=== PATIENT | male | born 1935 | race Caucasian/White ===

== ENCOUNTER → 2019-10-25 07:48 | Outpatient (REF) | payer MEDICARE, OTHER, SELFPAY | LOC: ANHLAB 07:48 | PROVIDERS: PCP Internal Medicine; Visit Provider Nurse Practitioner Family | DX: C44.42 Squamous cell carcinoma of skin of scalp and neck (principal) | CPT/HCPCS: 88305; 88331 ==

== ENCOUNTER 2023-12-28 15:35 | Inpatient (IN) | payer MEDICARE, SELFPAY ==
[2023-12-28] VITALS (43 sets, daily range): BP systolic 83–145; BP diastolic 42–99; PULSE 0–102; RESP 14–28; TEMP 37.2; O2SAT 92–99
--- NOTE | ~2023-12-28 | CT_ITS ---
EXAMINATION: CT brain wo con DATE: 12/28/2023 21:09 INDICATION: Altered mental status with weakness and confusion TECHNIQUE: Computed tomography (CT) of the head was performed without intravenous contrast. Sagittal and coronal reconstructions were performed. The mA was adjusted according to patient size. Iterative reconstruction technique was employed. The dose-length product was 1362.00 mGy-cm. COMPARISON: None FINDINGS: No acute intracranial hemorrhage, acute infarction or abnormal extra axial fluid collection. There is mild scattered white matter hypoattenuation consistent with chronic small vessel ischemic disease. S ymmetric prominence of the sulci and ventricles consistent with moderate to severeage-appropriate dif fuse cerebral volume loss. No mass/mass effect. Changes of bilateral intraocular lens replacement. Th e orbits and mastoid air cells are normal. Moderate mucosal thickening throughout the paranasal sinus es with dependently layering mucus in the bilateral maxillary and right sphenoid sinuses. Intracrania l calcified cerebral atherosclerosis is noted. IMPRESSION: 1. No acute intracranial process. 2. Age related changes including moderate to severe diffuse volume loss and mild scattered white angelia er hypoattenuation consistent with chronic small vessel ischemic disease. 3. Sinus disease with layering fluid in the paranasal sinuses. Correlate clinically for acute sinusit is. Reviewed, dictated and finalized at location A. IMPRESSION: 1. No acute intracranial process. 2. Age related changes including moderate to severe diffuse volume loss and mil d scattered white matter hypoattenuation consistent with chronic small vessel i schemic disease. 3. Sinus disease with layering fluid in the paranasal sinuses. Correlate clinic ally for acute sinusitis.
--- NOTE | ~2023-12-28 | XR_ITS ---
XR chest 2V Ordering provider: Karen Romo MD History: 88 years Male with . weakness . Comparison: None. FINDINGS: MEDIASTINUM: The cardiac silhouette is not enlarged. LUNGS: No effusions or pneumothorax. Atelectasis versus pneumonia seen in the left lung base. Promine nt markings in the right lower lobe with possibility of early pneumonia versus atelectasis is noted. OTHER: Elevation of the left hemidiaphragm. No free air under the diaphragm. Levoscoliosis with degen erative changes of the spine. Bilateral shoulder osteoarthritic changes. IMPRESSION: Bibasilar atelectasis versus pneumonia. Clinical correlation advised. Reviewed, dictated and finalized at location A.
--- NOTE | 2023-12-28 16:03 | ECG_ITS ---
Test Date: 2023-12-28 16:14:28 Measurements Intervals [place] Rate: 76 P: 29 CA: 166 QRS: 61 QRSD: 111 T: -9 QT: 401 QTc: 452 Interpretive Statements SINUS RHYTHM PROBABLE INFERIOR MYOCARDIAL INFARCTION , PROBABLY OLD [35 ms Q WAVE IN II/aVF] PROBABLE ANTEROLATERAL MYOCARDIAL INFARCTION , OF INDETERMINATE AGE [35 ms Q WAVE IN I/aVL/V3-V6] No previous ECG available for comparison Electronically Signed On 12-29-2023 15:51:16 CDT by Sapphire Molina M.D.
[2023-12-28 16:23] LABS: Basophils Percent Auto 0.3 % (0.2-1.2); Eosinophils Absolute Auto 0.1 K/mm3 (0-0.3); Eosinophils Percent Auto 0.4 % (0-4.4); Hemoglobin 11.6 g/dL (14.0-18.0); Immature Granulocyte Absolute 0.06 K/mm3 (0.00-0.031); Immature Granulocyte Percent A 0.4 % (0-0.5); Lymphocytes Absolute Auto 1.41 K/mm3 (0.9-3.2); Lymphocytes Percent Auto 9.8 % (18.3-44.2); Mean Corpuscular HGB Conc 32.2 g/dl (32-36); Mean Platelet Volume 8.9 fl (7.4-10.4); Monocytes Absolute Auto 1.2 K/mm3 (0.1-0.6); Monocytes Percent Auto 8.5 % (2.6-8.5); Neutrophils Absolute Auto 11.6 K/mm3 (1.3-6.7); Neutrophils Percent Auto 80.6 % (45.5-73.1); Platelet Count Result 200 k/mm3 (150-375); Red Blood Count 3.87 M/mm3 (4.6-6.20); Red Cell Distribution Width 12.8 % (11.5-14.5); White Blood Count 14.4 K/mm3 (4.5-10.0)
[2023-12-28 16:35] LABS: Alanine Aminotransferase 8 U/L (6-50); Albumin Level 3.6 g/dL (3.5-5.1); Alkaline Phosphatase 77 U/L (38-126); Anion Gap 9 mmol/L (4-12); Aspartate Amino Transferase 55 U/L (17-59); Bilirubin,Total 0.9 mg/dL (0.2-1.3); Blood Urea Nitrogen 22 mg/dL (9-20); Calcium 8.8 mg/dL (8.4-10.2); Carbon Dioxide 30 mmol/L (22-30); Chloride 97 mmol/L (98-107); Estimated CRCL calculation 40 ml/min; Estimated Glomerular Filt Rate > 60; Glucose 104 mg/dL (65-110); Potassium 3.2 mmol/L (3.4-5.0); Sodium 136 mmol/L (137-145)
[2023-12-28 17:45] LABS: Add Urine Microscopic? YES; Appearance Urine Clear (Clear); Bacteria Urine None Seen /hpf; Bilirubin Urine Negative (Negative); Blood Urine Negative (Negative); Color Urine Yellow (Yellow); Glucose Urine UA Negative (Negative); Ketones Urine 1+ mg/dL (Negative); Leukocyte Esterase Ur Negative LEU/UL (Negative); Need Manual Microscopic Reviewed; Nitrate Urine Negative (Negative); Non Pathogenic Casts 0-2; Protein Urine 1+ mg/dL (Negative); RBC Urine 0-2 /hpf (0-2); Specific Grav Ur 1.023 (1.001-1.035); Squamous Epithelial Cell Urine None Seen /hpf (Few); WBC Urine 0-5 /hpf (0-3); pH Urine 5.5 (5.0-9.0)
[2023-12-28] MEDS: SODIUM CHLORIDE 0.9% IV 1,000 ML 999 ML IV CONT (20:23)
[2023-12-28] MEDS: AZITHROMYCIN 500 MG/NS 250 ML 500 MG/250 ML BAG 250 MG IVPB (20:24)
[2023-12-28] MEDS: POTASSIUM CHLORIDE INJ 40 MEQ in SODIUM CHLORIDE 0.9% IV 500 ML 130 MEQ IVPB (20:28)
[2023-12-28] MEDS: SODIUM CHLORIDE 0.9% IV 500 ML (20:28)
[2023-12-28 20:33] LABS: Creatine Kinase 758 U/L (55-170); Lactic Acid Reflex 1.8 mmol/L (0.7-2.0); Magnesium 1.9 mg/dL (1.6-2.3)
[2023-12-28 20:35] LABS: INR 1.1; Partial Thromboplastin Time 31.2 Seconds (22.3-36.8); Prothrombin Time 14.8 Seconds (11.1-14.7)
[2023-12-28 20:46] LABS: Troponin I 0.029 ng/mL (0.000-0.034)
--- NOTE | 2023-12-28 20:52 | ED.WEAKNESS ---
HPI - Weakness General Chief complaint: Weakness Stated complaint: weakness Time Seen by Provider: 12/28/23 19:01 History of Present Illness HPI Narrative: 88-year-old male with a history of Parkinson's disease. HTN, HLD presents to the emergency department via EMS from home with his daughter and at bedside for altered mental status. Patient's daughter provides the following history. States the patient has been able to ambulates slowly with a walker, however over the past week he has been able to ambulate at all. States she has seen more confused within the past week and today his condition has significantly worsened. She is concerned he may have a UTI. Patient lives at home along with his . Patient's and daughter are requesting that the patient be placed in alf given the concern they are unable to care for him at home. Per their report, the patient is normally A&O x4 and on my evaluation he is A&O x1. They state that they have noticed he has had some coughing congestion and the states that she noticed a sore to sacrum, otherwise in his normal state health. Denies complaints of chest pain or abdominal pain, vomiting or diarrhea, fever. Related Data Home Medications Medication Instructions Recorded Confirmed lisinopril 2.5 mg tablet 2.5 mg PO DAILY 10/25/19 12/28/23 simvastatin 5 mg tablet 5 mg PO DAILY 10/25/19 12/28/23 diltiazem HCl 120 mg 120 mg PO Q12H 02/24/21 12/28/23 capsule,extended release 12 hr hydrochlorothiazide 25 mg tablet mg 12/28/23 mirabegron 50 mg tablet,extended mg PO 12/28/23 release 24 hr (Myrbetriq) Allergies Allergy/AdvReac Type Severity Reaction Status Date / Time No Known Drug Allergies Allergy Unknown none Verified 01/04/23 15:12 Review of Systems Review of Systems: All systems reviewed & are unremarkable except as noted in HPI and below PMFSH Past Medical History Medical History (Updated 12/28/23 @ 22:37 by Sonya Dunham PA-C) Parkinsons Scoliosis Social History Social History Smoking status: Never smoker Alcohol intake: never Lack of Transportation: No Lack of Food: Never True Current Housing: I Have Housing Concerned About Future Housing: No Difficulty Paying Gas/Electric Bills: No Difficulty Paying for Meds: No Currently Unemployed: No Education: Bachelor's Degree Difficulty w/ Childcare or Family Care: No Living arrangements: with family Occupation/Education: retired Gender identity (if verbalized by the patient): Male Exam Narrative: GENERAL: elderly, no acute distress HEAD: Normocephalic, atraumatic. EYES: PERRLA and EOMI. ENT: Nares clear, no rhinorrhea or epistaxis. Mucous membranes moist. NECK: Supple. CHEST: Clear to auscultation. No respiratory distress. HEART: Regular rate and rhythm. No murmur heard. Normal peripheral pulses. ABDOMEN: Soft, nontender, nondistended, normal active bowel sounds. EXTREMITIES: Normal range of motion. No edema. SKIN: Stage I sacral ulcer with a small area of stage II sacral ulcer. No signs of secondary bacterial infection, no purulence or warmth. NEURO: Alert and oriented x1 . Moving all extremities spontaneously Course Vital Signs Vital signs: Vital Signs Temperature 99 F 12/28/23 15:50 Pulse Rate 85 12/28/23 15:50 Respiratory Rate 20 12/28/23 15:50 Blood Pressure 83/42 L 12/28/23 15:50 Pulse Oximetry 96 12/28/23 15:50 Oxygen Delivery Room Air 12/28/23 15:50 Temperature 99 F 12/28/23 15:50 Pulse Rate 95 12/28/23 21:49 Respiratory Rate 14 12/28/23 21:49 Blood Pressure 145/67 H 12/28/23 21:49 Pulse Oximetry 97 12/28/23 21:49 Oxygen Delivery Room Air 12/28/23 15:50 MDM - Weakness MDM Narrative Medical decision making narrative: 88-year-old male with history of Parkinson's disease presents emergency department via EMS from home with his
[2023-12-28 21:05] LABS: Thyroid Stimulating Hormone 0.467 uIU/mL (0.465-4.680)
--- NOTE | 2023-12-28 21:46 | PC.NURSE ---
This RN changed pt diaper and dressed the stage 1 pressure ulcer on pt bottom with mepalex.
[2023-12-28 21:54] LABS: Influenza A QL RT-PCR Negative (Negative); Influenza B QL RT-PCR Negative (Negative); SARS-CoV-2 RNA PCR Negative (Negative)
--- NOTE | 2023-12-28 22:34 | ECG_ITS ---
Test Date: 2023-12-28 23:28:53 Measurements Intervals [place] Rate: 81 P: 71 FL: 222 QRS: -26 QRSD: 173 T: 95 QT: 424 QTc: 495 Interpretive Statements SINUS RHYTHM WITH FIRST DEGREE AV BLOCK LEFT BUNDLE BRANCH BLOCK [120+ ms QRS DURATION, 80+ ms Q/S IN V1/V2, 85+ ms R IN I/aVL/V5/V6] Compared to ECG 12/28/2023 16:14:28 Left bundle-branch block now present Electronically Signed On 12-29-2023 15:56:57 CDT by Sapphire Molina M.D.
[2023-12-29] VITALS (20 sets, daily range): BP systolic 121–151; BP diastolic 65–95; PULSE 58–93; RESP 18–25; TEMP 36.2–37.4; O2SAT 92–100; BMI 19.1
[2023-12-29 00:05] LABS: Troponin I 0.031 ng/mL (0.000-0.034)
--- NOTE | 2023-12-29 00:13 | ADMGEN ---
This patient, Kirit Ulrich, was admitted to IMU Room 204-01 at 0010. Patient/family oriented to hospital policies and general routines including ID bracelet, bed and alarms, visiting hours, pain management, procedures, bathroom and other care routines, personal items, smoking policy, room service/diet, and visiting hours. Information on how to activate the Rapid Response Team has been discussed. Patient/Family are encouraged to report perceived risks to care and to ask questions if they do not understand what they are told or what they should do.
[2023-12-29] MEDS: CARBIDOPA/LEVODOPA 25/100 MG TABLET 1 TABLET PO ×3 (09:28→17:07)
[2023-12-29] MEDS: dilTIAZem HCL 12 HR 60 MG CAP.12HR 120 MG PO ×2 (09:29→20:09)
--- NOTE | 2023-12-29 18:31 | PM.IMHP ---
H&P: HPI History of Present Illness Date/Time: 12/29/23 18:31 Chief Complaint: Weakness Narrative: ER-HPI Narrative: 88-year-old male with a history of Parkinson's disease. HTN, HLD presents to the emergency department via EMS from home with his daughter and at bedside for altered mental status. Patient's daughter provides the following history. States the patient has been able to ambulates slowly with a walker, however over the past week he has been able to ambulate at all. States she has seen more confused within the past week and today his condition has significantly worsened. She is concerned he may have a UTI. Patient lives at home along with his . Patient's and daughter are requesting that the patient be placed in long-term given the concern they are unable to care for him at home. Per their report, the patient is normally A&O x4 and on my evaluation he is A&O x1. They state that they have noticed he has had some coughing congestion and the states that she noticed a sore to sacrum, otherwise in his normal state health. Denies complaints of chest pain or abdominal pain, vomiting or diarrhea, fever. patient is 88 y/o weak and debilitated is found to have pneumonia most likely patient has a community-acquired pneumonia being treated with Rocephin and azithromycin, patient's and daughter are present in the room, patient is elderly herself and unable to take care of the patient, family discussed with the ocular care technologist for possible placement. Review of Systems Review of Systems: All systems reviewed & are unremarkable except as noted in HPI and below PMFSH Past Medical History Medical History Parkinsons Scoliosis Social History Social History Smoking status: Never smoker Alcohol intake: never Substance use: never Substance use type: does not use Lack of Transportation: No Lack of Food: Never True Current Housing: I Have Housing Concerned About Future Housing: No Difficulty Paying Gas/Electric Bills: No Difficulty Paying for Meds: No Currently Unemployed: No Education: Bachelor's Degree Difficulty w/ Childcare or Family Care: No Living arrangements: with family Occupation/Education: retired Gender identity (if verbalized by the patient): Male Spiritual care concerns: No Meds Home Medications and Allergies Home Medications Medication Instructions Recorded Confirmed Type simvastatin 5 mg tablet 5 mg PO DAILY 10/25/19 12/29/23 History diltiazem HCl 120 mg 120 mg PO Q12H 02/24/21 12/29/23 History capsule,extended release 12 hr hydrochlorothiazide 25 mg tablet 25 mg PO DAILY 12/28/23 12/29/23 History mirabegron 50 mg tablet,extended 50 mg PO DAILY 12/28/23 12/29/23 History release 24 hr (Myrbetriq) carbidopa 25 mg-levodopa 100 mg 25 - 100 tablet PO TID 12/29/23 12/29/23 History tablet donepezil 5 mg tablet 5 mg PO DAILY 12/29/23 12/29/23 History lisinopril 40 mg tablet 40 mg PO DAILY 12/29/23 12/29/23 History Allergies Allergy/AdvReac Type Severity Reaction Status Date / Time No Known Drug Allergies Allergy Unknown none Verified 01/04/23 15:12 Vital Signs Vital Signs - 24 hr 12/28/23 18:53 12/28/23 21:49 12/28/23 18:34 Temperature Pulse Rate 82 95 Respiratory Rate 20 14 26 H Blood Pressure 120/99 H 145/67 H 120/99 H Pulse Oximetry 98 97 Oxygen Delivery 12/28/23 18:51 12/28/23 19:00 12/28/23 19:15 Temperature Pulse Rate 0 L Respiratory Rate 26 H 20 18 Blood Pressure Pulse Oximetry Oxygen Delivery 12/28/23 19:30 12/28/23 19:45 12/28/23 20:00 Temperature Pulse Rate 102 H Respiratory Rate 22 H 21 H 22 H Blood Pressure Pulse Oximetry Oxygen Delivery 12/28/23 20:36 12/28/23 20:49 12/28/23 21:09 Temperature Pulse Rate 93 89 77 Respiratory Rate 17 21 H
[2023-12-29] MEDS: AZITHROMYCIN 500 MG/NS 250 ML 500 MG/250 ML BAG 250 MG IVPB (20:11)
[2023-12-30] VITALS (18 sets, daily range): BP systolic 111–138; BP diastolic 60–80; PULSE 64–92; RESP 16–20; TEMP 36.4–36.9; O2SAT 95–98
[2023-12-30 05:12] LABS: Hematocrit 32.9 % (42.0-52.0); Hemoglobin 10.4 g/dL (14.0-18.0); Mean Corpuscular HGB Conc 31.6 g/dl (32-36); Mean Corpuscular Hemoglobin 29.5 pg (26-34); Mean Corpuscular Volume 93.5 fl (80-100); Mean Platelet Volume 9.2 fl (7.4-10.4); Platelet Count Result 215 k/mm3 (150-375); Red Blood Count 3.52 M/mm3 (4.6-6.20); Red Cell Distribution Width 12.7 % (11.5-14.5)
[2023-12-30 05:31] LABS: Potassium 2.7 mmol/L (3.4-5.0)
[2023-12-30 05:33] LABS: Anion Gap 6 mmol/L (4-12); Blood Urea Nitrogen 18 mg/dL (9-20); Calcium 8.1 mg/dL (8.4-10.2); Carbon Dioxide 30 mmol/L (22-30); Chloride 98 mmol/L (98-107); Estimated CRCL calculation 49 ml/min; Estimated Glomerular Filt Rate > 60; Glucose 98 mg/dL (65-110); Magnesium 1.9 mg/dL (1.6-2.3); Sodium 134 mmol/L (137-145)
[2023-12-30] MEDS: POTASSIUM CHLORIDE 20 MEQ PACKET (FOR LIQUID) 60 MEQ PO (06:05)
[2023-12-30] MEDS: POTASSIUM CHLORIDE INJ 40 MEQ in SODIUM CHLORIDE 0.9% IV 500 ML 130 MEQ IVPB (06:05)
[2023-12-30] MEDS: CARBIDOPA/LEVODOPA 25/100 MG TABLET 1 TABLET PO ×3 (08:02→16:54)
[2023-12-30] MEDS: DONEPEZIL HCL 5 MG TABLET PO (08:02)
[2023-12-30] MEDS: MIRABEGRON 50 MG ER TABLET PO (08:02)
[2023-12-30] MEDS: dilTIAZem HCL 12 HR 60 MG CAP.12HR 120 MG PO ×2 (08:05→20:20)
--- NOTE | 2023-12-30 13:37 | PCPTNOTE ---
On 12/30/23, the student, [Lety Lopez], provided care and completed [facility] documentation on this patient. I have reviewed the student's documentation and agree with the findings.
[2023-12-30 13:55] LABS: Anion Gap 8 mmol/L (4-12); Blood Urea Nitrogen 16 mg/dL (9-20); Calcium 8.3 mg/dL (8.4-10.2); Carbon Dioxide 25 mmol/L (22-30); Chloride 102 mmol/L (98-107); Estimated CRCL calculation 55 ml/min; Estimated Glomerular Filt Rate > 60; Glucose 123 mg/dL (65-110); Magnesium 1.8 mg/dL (1.6-2.3); Potassium 3.9 mmol/L (3.4-5.0); Sodium 135 mmol/L (137-145)
--- NOTE | 2023-12-30 17:37 | WPDPN ---
Progress Note: A&P Assessment and Plan (1) Abnormal chest x-ray: Code(s): R93.89 - Abnormal findings on diagnostic imaging of other specified body structures Status: Acute Assessment and Plan: Patient's chest x-ray concerning for pneumonia suspect patient has community-acquired pneumonia being treated with Rocephin and azithromycin will continue to monitor will follow-up on blood culture and further recommendation to follow. (2) Hypokalemia: Code(s): E87.6 - Hypokalemia Status: Acute Assessment and Plan: Hypokalemia most likely secondary to poor dietary intake will monitor and supplement (3) Altered mental status: Qualifiers: Altered mental status type: unspecified Qualified Code(s): R41.82 - Altered mental status, unspecified Code(s): R41.82 - Altered mental status, unspecified Status: Acute Assessment and Plan: Patient with history of dementia now with community-acquired pneumonia exacerbating will monitor (4) Dementia: Code(s): F03.90 - Unspecified dementia, unspecified severity, without behavioral disturbance, psychotic disturbance, mood disturbance, and anxiety Status: Acute Assessment and Plan: Patient with history of dementia clinically stable will continue to monitor Plan patient is 88 y/o weak and debilitated is found to have pneumonia most likely patient has a community-acquired pneumonia being treated with Rocephin and azithromycin, on 12/28 patient's and daughter were present in the room, patient is an elderly herself and unable to take care of the patient, family discussed with the home health care physician for possible placement. patient potassium was low today and supplement. Subjective Date/time seen: 12/30/23 17:37 Interval history: patient is 88 y/o weak and debilitated is found to have pneumonia most likely patient has a community-acquired pneumonia being treated with Rocephin and azithromycin, on 12/28 patient's and daughter were present in the room, patient is an elderly herself and unable to take care of the patient, family discussed with the home health care physician for possible placement. patient potassium was low today and supplement. Review of Systems Review of Systems: All systems reviewed & are unremarkable except as noted in HPI and below Exam Narrative: Elderly frail chronically ill Patient is comfortable, NAD HEENT: eyes are clear and none icteric LUNGS: Bilateral fair entry with rhonchi HEART: RR S1S2 ABD: BS+, Soft and nontender Lower extremities: no edema SKIN: nonjaundiced Neuro: grossly intact. Objective Data Vital Signs Vital Signs: Vital Signs - 24 hr 12/29/23 18:00 12/29/23 20:36 12/29/23 20:00 Temperature 36.5 C Pulse Rate 80 75 Respiratory Rate 22 H Blood Pressure 127/70 Pulse Oximetry 97 Oxygen Delivery Room Air 12/29/23 20:00 12/29/23 22:00 12/29/23 23:55 Temperature 36.4 C Pulse Rate 81 73 72 Respiratory Rate 18 Blood Pressure 133/71 Pulse Oximetry 100 Oxygen Delivery 12/30/23 00:00 12/30/23 02:00 12/30/23 04:51 Temperature 36.5 C Pulse Rate 71 64 66 Respiratory Rate 20 Blood Pressure 124/60 Pulse Oximetry 98 Oxygen Delivery 12/30/23 04:00 12/30/23 06:00 12/30/23 08:00 Temperature 36.8 C Pulse Rate 68 65 71 Respiratory Rate 20 Blood Pressure 122/71 Pulse Oximetry 97 Oxygen Delivery 12/30/23 07:58 12/30/23 10:00 12/30/23 11:02 Temperature Pulse Rate 70 76 Respiratory Rate Blood Pressure Pulse Oximetry Oxygen Delivery Room Air 12/30/23 11:50 12/30/23 12:00 12/30/23 14:00 Temperature 36.8 C Pulse Rate 86 83 Respiratory Rate 16 Blood Pressure 123/80 Pulse Oximetry 95 Oxygen Delivery Room Air 12/30/23 14:00 12/30/23 16:00 12/30/23 16:00 Temperature 36.9 C Pulse Rate 77 69 69 Respiratory Rate 20 Blood Pressure 111/68 Pulse Oximetry 97 Oxygen Delivery
[2023-12-30] MEDS: AZITHROMYCIN 500 MG/NS 250 ML 500 MG/250 ML BAG 250 MG IVPB (20:21)
[2023-12-31] VITALS (13 sets, daily range): BP systolic 121–145; BP diastolic 59–83; PULSE 54–86; RESP 18–22; TEMP 36.7–37.2; O2SAT 97–99
[2023-12-31 05:25] LABS: Hematocrit 32.5 % (42.0-52.0); Hemoglobin 10.3 g/dL (14.0-18.0); Mean Corpuscular HGB Conc 31.7 g/dl (32-36); Mean Corpuscular Hemoglobin 29.6 pg (26-34); Mean Corpuscular Volume 93.4 fl (80-100); Mean Platelet Volume 9.3 fl (7.4-10.4); Platelet Count Result 219 k/mm3 (150-375); Red Blood Count 3.48 M/mm3 (4.6-6.20); Red Cell Distribution Width 12.7 % (11.5-14.5)
[2023-12-31 05:32] LABS: Anion Gap 4 mmol/L (4-12); Blood Urea Nitrogen 12 mg/dL (9-20); Carbon Dioxide 29 mmol/L (22-30); Chloride 101 mmol/L (98-107); Estimated CRCL calculation 55 ml/min; Estimated Glomerular Filt Rate > 60; Glucose 99 mg/dL (65-110); Magnesium 1.8 mg/dL (1.6-2.3); Potassium 3.4 mmol/L (3.4-5.0); Sodium 134 mmol/L (137-145)
[2023-12-31] MEDS: dilTIAZem HCL 12 HR 60 MG CAP.12HR 120 MG PO ×2 (08:36→21:37)
[2023-12-31] MEDS: CARBIDOPA/LEVODOPA 25/100 MG TABLET 1 TABLET PO ×3 (08:36→17:21)
[2023-12-31] MEDS: MIRABEGRON 50 MG ER TABLET PO (08:36)
[2023-12-31] MEDS: DONEPEZIL HCL 5 MG TABLET PO (08:36)
--- NOTE | 2023-12-31 17:00 | WPDPN ---
Progress Note: A&P Assessment and Plan (1) Abnormal chest x-ray: Code(s): R93.89 - Abnormal findings on diagnostic imaging of other specified body structures Status: Acute Assessment and Plan: Patient's chest x-ray concerning for pneumonia suspect patient has community-acquired pneumonia being treated with Rocephin and azithromycin will continue to monitor will follow-up on blood culture and further recommendation to follow. (2) Hypokalemia: Code(s): E87.6 - Hypokalemia Status: Acute Assessment and Plan: Hypokalemia most likely secondary to poor dietary intake will monitor and supplement (3) Altered mental status: Qualifiers: Altered mental status type: unspecified Qualified Code(s): R41.82 - Altered mental status, unspecified Code(s): R41.82 - Altered mental status, unspecified Status: Acute Assessment and Plan: Patient with history of dementia now with community-acquired pneumonia exacerbating will monitor (4) Dementia: Code(s): F03.90 - Unspecified dementia, unspecified severity, without behavioral disturbance, psychotic disturbance, mood disturbance, and anxiety Status: Acute Assessment and Plan: Patient with history of dementia clinically stable will continue to monitor Plan patient is 88 y/o weak and debilitated is found to have pneumonia most likely patient has a community-acquired pneumonia being treated with Rocephin and azithromycin, on 12/28 patient's and daughter were present in the room, patient is an elderly herself and unable to take care of the patient, family discussed with the care information associate for possible placement. patient potassium was low today and supplemented.patient is waiting from insurance authorization for placement. Subjective Date/time seen: 12/31/23 17:00 Interval history: patient is 88 y/o weak and debilitated is found to have pneumonia most likely patient has a community-acquired pneumonia being treated with Rocephin and azithromycin, on 12/28 patient's and daughter were present in the room, patient is an elderly herself and unable to take care of the patient, family discussed with the care information associate for possible placement. patient potassium was low today and supplemented.patient is waiting from insurance authorization for placement. Review of Systems Review of Systems: All systems reviewed & are unremarkable except as noted in HPI and below Exam Narrative: Elderly frail chronically ill Patient is comfortable, NAD HEENT: eyes are clear and none icteric LUNGS: Bilateral fair entry with rhonchi HEART: RR S1S2 ABD: BS+, Soft and nontender Lower extremities: no edema SKIN: nonjaundiced Neuro: grossly intact. Objective Data Vital Signs Vital Signs: Vital Signs - 24 hr 12/30/23 18:00 12/30/23 19:49 12/30/23 19:57 Temperature 36.4 C Pulse Rate 92 73 73 Respiratory Rate 19 Blood Pressure 138/68 Pulse Oximetry 96 Oxygen Delivery 12/30/23 19:58 12/30/23 21:45 12/30/23 23:27 Temperature Pulse Rate 73 86 68 Respiratory Rate 19 Blood Pressure Pulse Oximetry 96 Oxygen Delivery Room Air 12/31/23 00:00 12/31/23 04:00 12/31/23 04:00 Temperature 37.2 C 37.2 C Pulse Rate 79 54 L 68 Respiratory Rate 18 18 Blood Pressure 135/67 129/59 L Pulse Oximetry 99 99 Oxygen Delivery 12/31/23 06:00 12/31/23 07:47 12/31/23 08:00 Temperature 36.7 C Pulse Rate 59 L 74 75 Respiratory Rate 20 Blood Pressure 135/65 Pulse Oximetry 99 Oxygen Delivery 12/31/23 10:00 12/31/23 11:53 12/31/23 12:00 Temperature 37.0 C Pulse Rate 84 68 86 Respiratory Rate 20 Blood Pressure 121/62 Pulse Oximetry 97 Oxygen Delivery 12/31/23 14:00 12/31/23 16:34 Temperature 36.8 C Pulse Rate 77 75 Respiratory Rate 20 Blood Pressure 128/65 Pulse Oximetry 97 Oxygen Delivery Intake/Output Intake/Output: Intake & Output 12/27
--- NOTE | 2023-12-31 18:26 | PC.NURSE ---
This patient, Kirit Ulrich, was transferred to [ [facility]] on 12/31/23 at 1826. Personal belongings sent with patient. Report given to [Rebecca ]. Appropriate documentation sent with patient.
--- NOTE | 2023-12-31 18:30 | PC.NURSE ---
This patient, Kirit Ulrich, was received from [[facility]] on 12/31/23 at 1832. Patient/family oriented to unit policies and routines. Report from Larissa KWAN.
[2023-12-31] MEDS: AZITHROMYCIN 500 MG/NS 250 ML 500 MG/250 ML BAG 250 MG IVPB (21:37)
[2024-01-01] VITALS: BP 151/79; PULSE 80; RESP 16; TEMP 37.1; O2SAT 97
[2024-01-01 04:00] VITALS: BP 148/69; PULSE 82; PULSE 86; RESP 16; TEMP 37.1; O2SAT 98
[2024-01-01 07:17] LABS: Hematocrit 32.5 % (42.0-52.0); Hemoglobin 10.5 g/dL (14.0-18.0); Mean Corpuscular HGB Conc 32.3 g/dl (32-36); Mean Corpuscular Hemoglobin 29.7 pg (26-34); Mean Corpuscular Volume 91.8 fl (80-100); Platelet Count Result 240 k/mm3 (150-375); Red Blood Count 3.54 M/mm3 (4.6-6.20); Red Cell Distribution Width 12.5 % (11.5-14.5)
[2024-01-01 07:20] LABS: Anion Gap 5 mmol/L (4-12); Blood Urea Nitrogen 8 mg/dL (9-20); Calcium 8.2 mg/dL (8.4-10.2); Carbon Dioxide 27 mmol/L (22-30); Chloride 99 mmol/L (98-107); Estimated CRCL calculation 55 ml/min; Estimated Glomerular Filt Rate > 60; Glucose 91 mg/dL (65-110); Magnesium 1.7 mg/dL (1.6-2.3); Potassium 3.3 mmol/L (3.4-5.0); Sodium 131 mmol/L (137-145)
[2024-01-01 08:02] VITALS: PULSE 87
[2024-01-01] MEDS: CARBIDOPA/LEVODOPA 25/100 MG TABLET 1 TABLET PO ×2 (09:03→12:20)
[2024-01-01] MEDS: dilTIAZem HCL 12 HR 60 MG CAP.12HR 120 MG PO (09:04)
[2024-01-01] MEDS: MIRABEGRON 50 MG ER TABLET PO (09:04)
[2024-01-01] MEDS: DONEPEZIL HCL 5 MG TABLET PO (09:04)
[2024-01-01] MEDS: POTASSIUM CHLORIDE 20 MEQ PACKET (FOR LIQUID) 40 MEQ PO (09:04)
--- NOTE | 2024-01-01 09:24 | PM.DS ---
DS: Admitting Diagnosis Discharge Date 01/01/24 Admitting Diagnosis Weakness DS: Discharge Diagnosis Discharge Diagnosis (1) Altered mental status: Qualifiers: Altered mental status type: unspecified Qualified Code(s): R41.82 - Altered mental status, unspecified Code(s): R41.82 - Altered mental status, unspecified Status: Acute (2) Abnormal chest x-ray: Code(s): R93.89 - Abnormal findings on diagnostic imaging of other specified body structures Status: Acute (3) Hypokalemia: Code(s): E87.6 - Hypokalemia Status: Acute (4) Dementia: Code(s): F03.90 - Unspecified dementia, unspecified severity, without behavioral disturbance, psychotic disturbance, mood disturbance, and anxiety Status: Acute DS: Summary Hospital Course Hospital Course: patient is 88 y/o weak and debilitated is found to have pneumonia most likely patient has a community-acquired pneumonia being treated with Rocephin and azithromycin, on 12/28 patient's and daughter were present in the room, patient is an elderly herself and unable to take care of the patient, family discussed with the manager home healthcare for possible placement. patient potassium was low and supplemented.patient is waiting from insurance authorization for placement. patient remains clinically, today patient has a placement will discharge, will discharge on oral abx. Time Spent with Patient Time attestation: Total time spent providing and/or coordinating discharge services: Exam Narrative: Elderly frail chronically ill Patient is comfortable, NAD HEENT: eyes are clear and none icteric LUNGS: Bilateral fair entry with rhonchi HEART: RR S1S2 ABD: BS+, Soft and nontender Lower extremities: no edema SKIN: nonjaundiced Neuro: grossly intact. DS: Data Data Completed and Pending Labs on day of discharge: Labs from last 24 hours 01/01/24 06:47 WBC 10.0 RBC 3.54 L Hgb 10.5 L Hct 32.5 L MCV 91.8 MCH 29.7 MCHC 32.3 RDW 12.5 Plt Count 240 MPV 9.0 Sodium 131 L Potassium 3.3 L Chloride 99 Carbon Dioxide 27 Anion Gap 5 BUN 8 L Creatinine 0.70 Estim Creat Clear Calc 55 Estimated GFR > 60 Glucose 91 Calcium 8.2 L Magnesium 1.7 Preliminary micro results at discharge 12/28/23 20:11 Blood Culture - Preliminary Blood 12/28/23 20:11 Blood Culture - Preliminary Blood Discharge Plan Discharge Attending physician on discharge: Kathy Mera Consulting providers: Igor Fairchild; Jonathan Skinner; Sapphire Molina; Len Desai Discharging Clinician: Joseph Martini Patient Disposition: SNF Activity: as tolerated Diet: as tolerated Discharge Instructions: Patient to follow up with his primary care provider as soon as possible. Patient Instructions: Antibiotic Form, Pneumonia (DC) Stand Alone Forms: General Discharge Information Follow-up/Referrals: Yenny,Davian Padilla MD [Primary Care Provider] - Discharge Medications: New doxycycline hyclate 100 mg capsule 100 mg PO Q12H Qty: 10 0RF Continued simvastatin 5 mg tablet 5 mg PO DAILY diltiazem HCl 120 mg capsule,extended release 12 hr 120 mg PO Q12H mirabegron [Myrbetriq] 50 mg tablet extended release 24 hr 50 mg PO DAILY lisinopril 40 mg tablet 40 mg PO DAILY carbidopa-levodopa 25-100 mg tablet 25 - 100 tablet PO TID donepezil 5 mg tablet 5 mg PO DAILY Rx Instructions: TAKE 1 TABLET EVERY DAY Held hydrochlorothiazide 25 mg tablet 25 mg PO DAILY Hold Instructions: until seen by his primary care provider Date of admission: 12/30/23 14:51 Primary Care Provider: YennyDavian Admitting Provider: Kathy Mera Attending physician on admission: Joseph Martini Condition: Stable
[2024-01-01 12:03] VITALS: PULSE 78
[2024-01-01 12:24] LABS: SARS-CoV-2 RNA PCR Negative (Negative)
--- NOTE | 2024-01-03 07:43 | WPDCDIQUERY2 ---
CDI Query Clarification Request Pressure ulcer: Documentation in the medical record indicates that this patient has been identified as having and/or is being treated for a PRESSURE ULCER of the following areas: Sacrum Based on your medical judgment, can you please confirm the LOCATION/SITE AND THE PRESENT ON ADMISSION STATUS OF THE ULCER in the progress notes. Thank you. <Earlene Mathews RN - Last Filed: 01/03/24 07:48> Clarified Diagnosis Clarified Diagnosis: patient had pressure ulcer around Sacrum at present. <Joseph Martini MD - Last Filed: 01/16/24 10:34>
== END 2024-01-01 14:57 | DRG 641 ==
LOC: ANHED 22:38 → ANHIMU 23:13 → ANH3MEDSUR 12-31 18:35
PROVIDERS: Student in an Organized Health Care Education/Training Program; Admitting Provider Internal Medicine; Emergency Provider Physician Assistant; PCP Internal Medicine; Visit Provider Family Medicine
DX: E87.6 Hypokalemia (principal); I10 Essential (primary) hypertension; L89.152 Pressure ulcer of sacral region, stage 2; E78.5 Hyperlipidemia, unspecified; G20.A1 Parkinson's disease without dyskinesia, without mention of fluctuations; F02.80 Dementia in other diseases classified elsewhere, unspecified severity, without behavioral disturbance, psychotic disturbance, mood disturbance, and anxiety; Z20.822 Contact with and (suspected) exposure to COVID-19; Z11.52 Encounter for screening for COVID-19
CPT/HCPCS: 36415; 70450; 71046; 80048; 80053; 81001; 82550; 83605; 83735; 84443; 84484; 85025; 85027; 85610; 85730; 87040; 87635; 87636; 93005; 96365; 96366; 96367; 96368; 97116; 97161; 97166; 97530; 97535; 99285; A9270; G0378; J0456; J0696; J3480; J7030; J7040

== ENCOUNTER 2024-03-24 13:46 | Observation (INO) | payer MEDICARE, SELFPAY ==
[2024-03-24] VITALS (8 sets, daily range): BP systolic 137–188; BP diastolic 77–107; PULSE 64–97; RESP 12–20; TEMP 36.2–36.4; O2SAT 93–100; BMI 22.4
--- NOTE | ~2024-03-24 | CT_ITS ---
EXAMINATION: CT brain wo con DATE: 03/24/2024 16:24 INDICATION: Head injury. TECHNIQUE: Computed tomography (CT) of the head was performed without intravenous contrast. The mA wa s adjusted according to patient size. Iterative reconstruction technique was employed. The dose-lengt h product was 975.29 mGy-cm. COMPARISON: Head CT 12/28/2023 FINDINGS: There is diffuse brain volume loss. There are scattered areas of low attenuation in the cer ebral white matter. There is no intracranial hemorrhage, acute infarction, or abnormal intracranial m ass lesion. The ventricles are normal in size. There is mild mucosal thickening in the paranasal sinu ses. There are likely changes of ocular lens replacement surgeries. The mastoid air cells are normal. IMPRESSION: 1. Stable moderate nonspecific cerebral white matter disease, which likely represents chronic small v essel ischemic disease. Reviewed, dictated and finalized at location A. ERY PLATE ASSEMBLER IMPRESSION: 1. Stable moderate nonspecific cerebral white matter disease, which likely repr esents chronic small vessel ischemic disease.
--- NOTE | ~2024-03-24 | XR_ITS ---
HISTORY: fall COMPARISON: None TECHNIQUE: AP and lateral views of the thoracic spine were performed FINDINGS: Levoscoliotic curvature of the thoracic spine is present. No acute compression fracture is appreciated. Diffuse bony demineralization is noted. IMPRESSION: No acute compression fracture with diffuse bony demineralization. Reviewed, dictated and finalized at location A. ORK SUPPORT SPECIALIST
--- NOTE | 2024-03-24 14:16 | ED_ITS ---
HPI - Fall General Chief Complaint: Fall <VANNESA Barker Last Filed: 04/03/24 18:29> Stated Complaint: glf, mid back pain <VANNESA Barker Last Filed: 04/03/24 18:29> Time Seen by Provider: 03/24/24 13:50 <VANNESA Barker Last Filed: 04/03/24 18:29> Source: patient <VANNESA Barker Last Filed: 04/03/24 18:29> Mode of arrival: ambulatory <VANNESA Barker Last Filed: 04/03/24 18:29> Limitations: no limitations <VANNESA Barker Last Filed: 04/03/24 18:29> History of Present Illness HPI Narrative: This is a 88 year old male that presents to the ER for a fall today with head injury. Patient is not able to give much history due to dementia. Reportedly patient had a fall at home. Did hit his head. Reporting some back pain. Has no other complaints currently. His daughter reports he seems more confused today and yesterday. Lives home with his elderly and his son. <VANNESA Barker Last Filed: 04/03/24 18:29> Related Data Home Medications: Home Medications Medication Instructions Recorded Confirmed carbidopa 25 mg-levodopa 100 mg 2 tablet PO TID 12/29/23 03/24/24 tablet donepezil 5 mg tablet 5 mg PO DAILY 12/29/23 03/24/24 simvastatin 40 mg tablet 40 mg PO DAILY 03/24/24 03/24/24 <VANNESA Barker Last Filed: 04/03/24 18:29> Allergies/Adverse Reactions: Allergies Allergy/AdvReac Type Severity Reaction Status Date / Time No Known Drug Allergies Allergy Unknown none Verified 03/24/24 13:57 <VANNESA Barker Last Filed: 04/03/24 18:29> Review of Systems Review of Systems: <VANNESA Barker Last Filed: 04/03/24 18:29> ROS unobtainable: Yes unobtainable due to mental status <Ami Chandler PA-C - Last Filed: 04/03/24 18:29> [facility] Past Medical History Medical History: Medical History Dementia Hyperlipidemia Parkinsons Prostate cancer Scoliosis <Ami Chandler PA-C - Last Filed: 04/03/24 18:29> Social History Social History: Social History (Updated 03/25/24 @ 05:35 by Sharron Cole PA-C) Social History: Surrogate medical decision maker: Perla Valencia, daughter. Code status: Do not resuscitate. Smoking status: Never smoker Alcohol intake: never Substance use: never Substance use type: does not use Lack of Transportation: No Lack of Food: Never True Current Housing: I Have Housing Concerned About Future Housing: No Difficulty Paying Gas/Electric Bills: No Difficulty Paying for Meds: No Currently Unemployed: No Education: Bachelor's Degree Difficulty w/ Childcare or Family Care: No Living arrangements: with family Occupation/Education: retired Spiritual care concerns: No <Ami Chandler PA-C - Last Filed: 04/03/24 18:29> Exam Narrative: GENERAL: Well-appearing, well-nourished, and in no acute distress. HEAD: Normocephalic, atraumatic. EYES: PERRLA and EOMI. ENT: Nares clear, no rhinorrhea or epistaxis. Mucous membranes moist. Oropharynx without tonsillar hypertrophy exudate or other lesions. Bilateral TMs pearly barrera non-bulging NECK: Supple. No adenopathy or masses. C collar in place CHEST: Clear to auscultation. No respiratory distress. No wheezes rales or rhonchi HEART: Regular rate and rhythm. No murmur heard. Normal peripheral pulses. ABDOMEN: Soft, nontender, nondistended, normal active bowel sounds. EXTREMITIES: Normal range of motion. No edema or obvious deformity. SKIN: Warm, dry, no rash. NEURO: No focal deficits. Alert and oriented x1. Patient moving all extremities. PSYCH: Normal mood and affect <Ami Chandler PA-C - Last Filed: 04/03/24 18:29> Course Course Emergency Course: Patient and family updated on workup thus far. Plan will be for admission for likely intermediate placement. Care taken over by VANNESA Blackmon at shift change pending blood work/urine <Ami Chandler PA-C - Last Filed: 04/03/24 18:29> Vital Signs Vital signs: Vital Signs Temperature 97.1 F L 03/24/24 13:50 Pulse Rate 82 03/24/24 13:50 Respiratory Rate 20 03/24/24 13:50 Blood Pressure 137/95 H 03/24/24 13:50 Pulse Oximetry 98 03/24/24 13:50 Oxygen Delivery Room Air 03/24/24 13:50 Temperature 97.7 F 03/29/24 13:59 Pulse Rate 63 03/29/24 13:59 Respiratory Rate 12 03/29/24 13:59 Blood Pressure 149/76 H 03/29/24 13:59 Pulse Oximetry 100 03/29/24 13:59 Oxygen Delivery Room Air 03/29/24 08:00 <Ami Chandler PA-C - Last Filed: 04/03/24 18:29> Vital Signs Temperature 97.1 F L 03/24/24 13:50 Pulse Rate 82 03/24/24 13:50 Respiratory Rate 20 03/24/24 13:50 Blood Pressure 137/95 H 03/24/24 13:50 Pulse Oximetry 98 03/24/24 13:50 Oxygen Delivery Room Air 03/24/24 13:50 Temperature 97.7 F 03/29/24 13:59 Pulse Rate 63 03/29/24 13:59 Respiratory Rate 12 03/29/24 13:59 Blood Pressure 149/76 H 03/29/24 13:59 Pulse Oximetry 100 03/29/24 13:59 Oxygen Delivery Room Air 03/29/24 08:00 <Lorri Montoya PA-C - Last Filed: 03/24/24 21:43> MDM - Fall MDM Narrative Medical decision making narrative: Care signed out to myself at shift change. Patient needing admission to the hospital for intermediate placement. Insufficient care at home, at risk for further falls/injury. Case was discussed with hospitalist team prior to sign out. Laboratory studies show hypokalemia at 2.9. Otherwise unremarkable. Oral and IV replacement ordered. Magnesium pending. Urine without signs of infection. CT brain without acute findings. Thoracic x-ray negative. Patient will be admitted. Re discussed case with hospitalist, Sharron MEZA, accepted patient for admission. Family is in agreement with plan. <Lorri Montoya PA-C - Last Filed: 03/24/24 21:43> Medical Records Attestation: I reviewed the patient's medical records. <Lorri Montoya PA-C - Last Filed: 03/24/24 21:43> Lab Data Attestation: I reviewed the patient's lab results. <Lorri Montoya PA-C - Last Filed: 03/24/24 21:43> Result diagrams: 03/25/24 05:23 03/25/24 05:23 <Ami Chandler PA-C - Last Filed: 04/03/24 18:29> Labs: Lab Results 03/24/24 03/24/24 Range/Units 20:10 20:33 WBC 9.9 (4.5-10.0) K/mm3 RBC 3.51 L (4.6-6.20) M/mm3 Hgb 10.5 L (14.0-18.0) g/dL Hct 32.4 L (42.0-52.0) % MCV 92.3 (80-100) fl MCH 29.9 (26-34) pg MCHC 32.4 (32-36) g/dl RDW 14.9 H (11.5-14.5) % Plt Count 189 (150-375) k/mm3 MPV 9.6 (7.4-10.4) fl Immature Gran % (Auto) 0.3 (0-0.5) % Neut % (Auto) 68.9 (45.5-73.1) % Lymph % (Auto) 21.4 (18.3-44.2) % [place] % (Auto) 8.3 (2.6-8.5) % Eos % (Auto) 0.5 (0-4.4) % Baso % (Auto) 0.6 (0.2-1.2) % Lymph # (Auto) 2.11 (0.9-3.2) K/mm3 [place] # (Auto) 0.8 H (0.1-0.6) K/mm3 Eos # (Auto) 0.1 (0-0.3) K/mm3 Baso # (Auto) 0.1 (0.0-0.1) K/mm3 Abs Immat Gran (auto) 0.03 (0.00-0.031) K/mm3 Absolute Neuts (auto) 6.8 H (1.3-6.7) K/mm3 Absolute Nucleated RBC 0.000 (0.0-0.012) K/mm3 Nucleated RBC % 0.0 (0.0-0.2) % Sodium 138 (137-145) mmol/L Potassium 2.9 L (3.4-5.0) mmol/L Chloride 104 (98-107) mmol/L Carbon Dioxide 29 (22-30) mmol/L Anion Gap 5 (4-12) mmol/L BUN 11 (9-20) mg/dL Creatinine 0.80 (0.7-1.3) mg/dL Estim Creat Clear Calc 43 ml/min Estimated GFR > 60 (59 - ) Glucose 86 (65-110) mg/dL Calcium 8.6 (8.4-10.2) mg/dL Magnesium 2.0 (1.6-2.3) mg/dL Total Bilirubin 0.5 (0.2-1.3) mg/dL AST 37 (17-59) U/L ALT 7 (6-50) U/L Alkaline Phosphatase 87 (38-126) U/L Total Protein 7.0 (6.3-8.2) g/dL Albumin 3.3 L (3.5-5.1) g/dL Urine Color Yellow (Yellow) Urine Appearance Clear (Clear) Urine pH 7.0 (5.0-9.0) Ur Specific [place] 1.013 (1.001-1.035) Urine Protein Trace (Negative) mg/dL Urine Glucose (UA) Negative (Negative) mg/dL Urine Ketones Negative (Negative) mg/dL Ur Blood (Man) Negative (Negative) Urine Nitrate Negative (Negative) Urine Bilirubin Negative (Negative) Urine Urobilinogen 0.2 (<2.0) mg/dL Add Ur Microanalysis Reviewed Leukocyte Esterase Rfl Negative (Negative) SILVINA/UL Urine RBC 0-2 (0-2) /hpf Urine WBC 6-10 H (0-3) /hpf Ur Squamous Epith Cells None seen (Few) /hpf Urine Bacteria None seen /hpf Urine Casts 6-10 Hyaline Casts Present (None) /lpf Influenza A (RT-PCR) Negative (Negative) Influenza B (RT-PCR) Negative (Negative) RSV (RT-PCR) Negative (Negative) SARS-CoV-2 RNA (RT-PCR) Negative (Negative) <Ami Chandler PA-C - Last Filed: 04/03/24 18:29> Lab Results 03/24/24 03/24/24 Range/Units 20:10 20:33 WBC 9.9 (4.5-10.0) K/mm3 RBC 3.51 L (4.6-6.20) M/mm3 Hgb 10.5 L (14.0-18.0) g/dL Hct 32.4 L (42.0-52.0) % MCV 92.3 (80-100) fl MCH 29.9 (26-34) pg MCHC 32.4 (32-36) g/dl RDW 14.9 H (11.5-14.5) % Plt Count 189 (150-375) k/mm3 MPV 9.6 (7.4-10.4) fl Immature Gran % (Auto) 0.3 (0-0.5) % Neut % (Auto) 68.9 (45.5-73.1) % Lymph % (Auto) 21.4 (18.3-44.2) % [place] % (Auto) 8.3 (2.6-8.5) % Eos % (Auto) 0.5 (0-4.4) % Baso % (Auto) 0.6 (0.2-1.2) % Lymph # (Auto) 2.11 (0.9-3.2) K/mm3 [place] # (Auto) 0.8 H (0.1-0.6) K/mm3 Eos # (Auto) 0.1 (0-0.3) K/mm3 Baso # (Auto) 0.1 (0.0-0.1) K/mm3 Abs Immat Gran (auto) 0.03 (0.00-0.031) K/mm3 Absolute Neuts (auto) 6.8 H (1.3-6.7) K/mm3 Absolute Nucleated RBC 0.000 (0.0-0.012) K/mm3 Nucleated RBC % 0.0 (0.0-0.2) % Sodium 138 (137-145) mmol/L Potassium 2.9 L (3.4-5.0) mmol/L Chloride 104 (98-107) mmol/L Carbon Dioxide 29 (22-30) mmol/L Anion Gap 5 (4-12) mmol/L BUN 11 (9-20) mg/dL Creatinine 0.80 (0.7-1.3) mg/dL Estim Creat Clear Calc 43 ml/min Estimated GFR > 60 (59 - ) Glucose 86 (65-110) mg/dL Calcium 8.6 (8.4-10.2) mg/dL Magnesium 2.0 (1.6-2.3) mg/dL Total Bilirubin 0.5 (0.2-1.3) mg/dL AST 37 (17-59) U/L ALT 7 (6-50) U/L Alkaline Phosphatase 87 (38-126) U/L Total Protein 7.0 (6.3-8.2) g/dL Albumin 3.3 L (3.5-5.1) g/dL Urine Color Yellow (Yellow) Urine Appearance Clear (Clear) Urine pH 7.0 (5.0-9.0) Ur Specific [place] 1.013 (1.001-1.035) Urine Protein Trace (Negative) mg/dL Urine Glucose (UA) Negative (Negative) mg/dL Urine Ketones Negative (Negative) mg/dL Ur Blood (Man) Negative (Negative) Urine Nitrate Negative (Negative) Urine Bilirubin Negative (Negative) Urine Urobilinogen 0.2 (<2.0) mg/dL Add Ur Microanalysis Reviewed Leukocyte Esterase Rfl Negative (Negative) SILVINA/UL Urine RBC 0-2 (0-2) /hpf Urine WBC 6-10 H (0-3) /hpf Ur Squamous Epith Cells None seen (Few) /hpf Urine Bacteria None seen /hpf Urine Casts 6-10 Hyaline Casts Present (None) /lpf Influenza A (RT-PCR) Negative (Negative) Influenza B (RT-PCR) Negative (Negative) RSV (RT-PCR) Negative (Negative) SARS-CoV-2 RNA (RT-PCR) Negative (Negative) <Lorri Montoya PA-C - Last Filed: 03/24/24 21:43> Imaging Data Attestation: I personally reviewed and interpreted this imaging study as follows: <Lorri Montoya PA-C - Last Filed: 03/24/24 21:43> Radiologist's impression: ITS Impressions Head CT 03/24/24 16:27 IMPRESSION: 1. Stable moderate nonspecific cerebral white matter disease, which likely represents chronic small vessel ischemic disease. Thoracic Spine X-Ray 03/24/24 17:47 IMPRESSION: No acute compression fracture with diffuse bony demineralization. <Ami Chandler PA-C - Last Filed: 04/03/24 18:29> Critical Care Time Critical Care Time Critical Care Time: No <VANNESA Barker Last Filed: 04/03/24 18:29> Discharge Plan Discharge Clinical Impression: Weakness, Hypokalemia Fall Qualifiers: Encounter type: initial encounter Qualified Code(s): W19.XXXA - Unspecified fall, initial encounter Head injury Qualifiers: Encounter type: initial encounter Qualified Code(s): S09.90XA - Unspecified injury of head, initial encounter Parkinson disease Qualifiers: Dyskinesia presence: unspecified whether dyskinesia Fluctuating manifestations: unspecified whether manifestations fluctuate Qualified Code(s): G20.A1 - Parkinson's disease without dyskinesia, without mention of fluctuations <VANNESA Barker Last Filed: 04/03/24 18:29> Patient Disposition: Still a Patient <VANNESA Barker Last Filed: 04/03/24 18:29> Condition: Stable <VANNESA Barker Last Filed: 04/03/24 18:29>
[2024-03-24] MEDS: LORazepam INJ (*CRX) 2 MG/ML VIAL 0.5 MG IV PUSH (14:54)
--- NOTE | 2024-03-24 15:31 | PC.NURSE ---
CT unable to be completed, pt too agitated. Ami MEZA informed
[2024-03-24] MEDS: diphenhydrAMINE HCl INJ 50 MG/ML VIAL 25 MG IV PUSH (16:00)
--- NOTE | 2024-03-24 16:43 | PC.NURSE ---
Addendum entered by Jeanne Verdugo RN 03/24/24 17:05: Ami MEZA informed Original Note: RN received call from CT unable to obtain CT of thoracic spine or c-spine.
[2024-03-24 20:21] LABS: Basophils Absolute Auto 0.1 K/mm3 (0.0-0.1); Basophils Percent Auto 0.6 % (0.2-1.2); Eosinophils Absolute Auto 0.1 K/mm3 (0-0.3); Eosinophils Percent Auto 0.5 % (0-4.4); Hematocrit 32.4 % (42.0-52.0); Hemoglobin 10.5 g/dL (14.0-18.0); Immature Granulocyte Absolute 0.03 K/mm3 (0.00-0.031); Immature Granulocyte Percent A 0.3 % (0-0.5); Lymphocytes Absolute Auto 2.11 K/mm3 (0.9-3.2); Lymphocytes Percent Auto 21.4 % (18.3-44.2); Mean Corpuscular HGB Conc 32.4 g/dl (32-36); Mean Corpuscular Hemoglobin 29.9 pg (26-34); Mean Corpuscular Volume 92.3 fl (80-100); Mean Platelet Volume 9.6 fl (7.4-10.4); Monocytes Absolute Auto 0.8 K/mm3 (0.1-0.6); Monocytes Percent Auto 8.3 % (2.6-8.5); Neutrophils Absolute Auto 6.8 K/mm3 (1.3-6.7); Neutrophils Percent Auto 68.9 % (45.5-73.1); Platelet Count Result 189 k/mm3 (150-375); Red Blood Count 3.51 M/mm3 (4.6-6.20); Red Cell Distribution Width 14.9 % (11.5-14.5); White Blood Count 9.9 K/mm3 (4.5-10.0)
[2024-03-24 20:36] LABS: Alanine Aminotransferase 7 U/L (6-50); Albumin Level 3.3 g/dL (3.5-5.1); Alkaline Phosphatase 87 U/L (38-126); Anion Gap 5 mmol/L (4-12); Aspartate Amino Transferase 37 U/L (17-59); Bilirubin,Total 0.5 mg/dL (0.2-1.3); Blood Urea Nitrogen 11 mg/dL (9-20); Calcium 8.6 mg/dL (8.4-10.2); Carbon Dioxide 29 mmol/L (22-30); Chloride 104 mmol/L (98-107); Estimated CRCL calculation 43 ml/min; Estimated Glomerular Filt Rate > 60; Glucose 86 mg/dL (65-110); Potassium 2.9 mmol/L (3.4-5.0); Sodium 138 mmol/L (137-145)
[2024-03-24 20:50] LABS: Add Urine Microscopic? YES; Appearance Urine Clear (Clear); Bacteria Urine None Seen /hpf; Bilirubin Urine Negative (Negative); Blood Urine Negative (Negative); Color Urine Yellow (Yellow); Glucose Urine UA Negative (Negative); Hyaline Casts Urine Present /lpf; Ketones Urine Negative (Negative); Leukocyte Esterase Ur Negative LEU/UL (Negative); Need Manual Microscopic Reviewed; Nitrate Urine Negative (Negative); Protein Urine Trace mg/dL (Negative); RBC Urine 0-2 /hpf (0-2); Specific Grav Ur 1.013 (1.001-1.035); Squamous Epithelial Cell Urine None Seen /hpf (Few); Urobilinogen Urine 0.2 mg/dL (<2.0)
[2024-03-24 20:58] LABS: Influenza A QL RT-PCR Negative (Negative); Influenza B QL RT-PCR Negative (Negative); RSV RNA, RT-PCR Negative (Negative); SARS-CoV-2 RNA PCR Negative (Negative)
--- NOTE | 2024-03-24 21:32 | PC.NURSE ---
Called Lab, spoke with Staci. Aware of mag add-on.
--- NOTE | 2024-03-24 21:35 | PM.IMHP ---
H&P: HPI History of Present Illness Date/Time: 03/24/24 21:35 Chief Complaint: Fall. Narrative: This is an 88-year-old male with history of Parkinson's disease, cognitive impairment, hallucinations, hypertension, and dyslipidemia who presented to the emergency department via EMS from home after a fall. At baseline he is alert and oriented to self only and he is not able to provide an accurate history. As such a majority the following is obtained via a review of his EMR as well as information provided by his family members. He was hospitalized in December 2023 with weakness and was discharged to [facility] thereafter. Family members were not happy with the facility and brought him home. He lives at home with his and son and they try to keep him in a wheelchair but he tends to try to get up and has frequent falls. Today he had a ground level fall in which he hit his head on the floor without reports of loss of consciousness. His only complaint was that of mid back pain on arrival. At the time of my evaluation he has no complaints and denies headache, focal weakness, fever, chills, sweats, chest pain, shortness of breath, nausea, vomiting, diarrhea, and dysuria. In the ED: Vital signs were stable on arrival. Labs were significant for hemoglobin of 10.5 which is stable compared to previous labs, potassium 2.9, albumin 3.3. Head CT showed stable moderate nonspecific cerebral white matter disease.? Thoracic spine x-ray showed no acute compression fracture with diffuse bony demineralization. Family do not feel they are able to care for him at home any longer and he is being admitted for placement. Review of Systems Review of Systems: 12 systems were reviewed and are negative except for as per HPI. [facility] Past Medical History Medical History Dementia Hyperlipidemia Parkinsons Prostate cancer Scoliosis Social History Social History (Updated 03/25/24 @ 05:35 by Sharron Cole PA-C) Social History: Surrogate medical decision maker: Perla Valencia, daughter. Code status: Do not resuscitate. Smoking status: Never smoker Alcohol intake: never Substance use: never Substance use type: does not use Lack of Transportation: No Lack of Food: Never True Current Housing: I Have Housing Concerned About Future Housing: No Difficulty Paying Gas/Electric Bills: No Difficulty Paying for Meds: No Currently Unemployed: No Education: Bachelor's Degree Difficulty w/ Childcare or Family Care: No Living arrangements: with family Occupation/Education: retired Spiritual care concerns: No Meds Home Medications and Allergies Home Medications Medication Instructions Recorded Confirmed Type carbidopa 25 mg-levodopa 100 mg 2 tablet PO TID 12/29/23 03/24/24 History tablet donepezil 5 mg tablet 5 mg PO DAILY 12/29/23 03/24/24 History simvastatin 40 mg tablet 40 mg PO DAILY 03/24/24 03/24/24 History Allergies Allergy/AdvReac Type Severity Reaction Status Date / Time No Known Drug Allergies Allergy Unknown none Verified 03/24/24 13:57 Vital Signs Vital Signs - 24 hr 03/24/24 13:50 03/24/24 16:03 03/24/24 20:13 Temperature 97.1 F L Pulse Rate 82 97 91 Respiratory Rate 20 16 18 Blood Pressure 137/95 H 147/81 H 156/107 H Pulse Oximetry 98 97 99 Oxygen Delivery Room Air Exam Narrative: General: Thin, frail elderly gentleman supine in bed in no acute distress. Weight: 52.1 kg. BMI: 22.4. HEENT: PERRL, EOMI. Sclera anicteric. Tacky mucous membranes. Neck: Supple. Respiratory: Lungs are clear to auscultation bilaterally. Cardiovascular: Regular rate and rhythm with S1-S2. Soft systolic murmur. Gastrointestinal: Abdomen is soft, nontender, and nondistended with positive bowel sounds. Skin: Warm and dry. Abrasion on the right arm. No rash or lesions on limited exam. Extremities: No cyanosis, clubbing, or edema. Radial and pedal pulses intact. Neurological: Alert to self. Cranial nerves 2-12 are grossly intact. Speech is clear. No facial asymmetry. Generalized weakness without gross focal findings. Psychiatric: Confused but cooperative with appropriate mood. H&P: Results Labs Labs: Short CBC 03/24/24 Range/Units 20:10 WBC 9.9 (4.5-10.0) K/mm3 Hgb 10.5 L (14.0-18.0) g/dL Hct 32.4 L (42.0-52.0) % Plt Count 189 (150-375) k/mm3 BMP 03/24/24 20:10 Sodium 138 Potassium 2.9 L Chloride 104 Carbon Dioxide 29 BUN 11 Creatinine 0.80 Glucose 86 Calcium 8.6 Liver Function 03/24/24 Range/Units 20:10 Total Bilirubin 0.5 (0.2-1.3) mg/dL AST 37 (17-59) U/L ALT 7 (6-50) U/L Alkaline Phosphatase 87 (38-126) U/L Albumin 3.3 L (3.5-5.1) g/dL Urine 03/24/24 Range/Units 20:33 Urine Color Yellow (Yellow) Urine Appearance Clear (Clear) Urine pH 7.0 (5.0-9.0) Ur Specific [place] 1.013 (1.001-1.035) Urine Protein Trace (Negative) mg/dL Urine Glucose (UA) Negative (Negative) mg/dL Imaging Head CT 03/24/24 16:27 IMPRESSION: 1. Stable moderate nonspecific cerebral white matter disease, which likely represents chronic small vessel ischemic disease. Thoracic Spine X-Ray 03/24/24 17:47 IMPRESSION: 1. No acute compression fracture with diffuse bony demineralization. Assessment and Plan Assessment and plan (1) Fall: Qualifiers: Encounter type: initial encounter Qualified Code(s): W19.XXXA - Unspecified fall, initial encounter Code(s): W19.XXXA - Unspecified fall, initial encounter Status: Acute (2) Generalized weakness: Code(s): R53.1 - Weakness Status: Acute (3) Head injury: Qualifiers: Encounter type: initial encounter Qualified Code(s): S09.90XA - Unspecified injury of head, initial encounter Code(s): S09.90XA - Unspecified injury of head, initial encounter Status: Acute (4) Parkinson disease: Qualifiers: Dyskinesia presence: unspecified whether dyskinesia Fluctuating manifestations: unspecified whether manifestations fluctuate Qualified Code(s): G20.A1 - Parkinson's disease without dyskinesia, without mention of fluctuations Code(s): G20.A1 - Parkinson's disease without dyskinesia, without mention of fluctuations Status: Acute (5) Dementia: Code(s): F03.90 - Unspecified dementia, unspecified severity, without behavioral disturbance, psychotic disturbance, mood disturbance, and anxiety Status: Acute (6) Hyperlipidemia: Code(s): E78.5 - Hyperlipidemia, unspecified Status: Acute Plan The patient presented to the emergency department from home after ground level fall in which he struck his head as detailed in HPI. Labs, imaging, EKG, and all reports were personally reviewed. Initiate fall precautions. Care coordination consulted for placement. Hold hydrochlorothiazide due to hypokalemia.?Potassium will be replaced and monitored. Hold simvastatin as well which could be contributing to weakness; the benefit may not be worth the risk in this elderly gentleman with advanced dementia. Vital signs were reviewed and they are stable. His home medications will be reviewed and resumed as appropriate. Findings and treatment plan were discussed with the patient. Questions were solicited and answered to satisfaction. The patient's medical management will be taken over by the hospitalist team in a.m. Quality VTE Prophylaxis VTE prophylaxis: mechanical ordered If No VTE Prophylaxis Answer both mechanical and pharmacologic: Reason no pharmacologic proph: medical contraindication (fall risk) The patient has been placed under observation status. Hospitalist [facility] Advance Care Plan I have confirmed that the patient's Advanced Care Plan is present, code status is documented, or surrogate decision maker is listed in patient medical record.: Yes Medication Reconciliation I have utilized all available resources to obtain, update and review the patients current medications (includes all prescriptions, OTC, herbals, cannabis, and nutritional supplements).: Yes
[2024-03-24] MEDS: KCL 20 MEQ/SW 100 ML 100 ML 50 MEQ IVPB (21:40)
[2024-03-24] MEDS: POTASSIUM CHLORIDE 20 MEQ ER TABLET 40 MEQ PO (21:46)
--- NOTE | 2024-03-24 22:25 | PC.NURSE ---
Attempted to call report at this time. RN stated i'm in the middle of a rapid. they will have to wait .
--- NOTE | 2024-03-24 23:15 | ADMGEN ---
This patient, Kirit Ulrich, was admitted to Medical Room 245-. Patient/family oriented to hospital policies and general routines including ID bracelet, bed and alarms, visiting hours, pain management, procedures, bathroom and other care routines, personal items, smoking policy, room service/diet, and visiting hours. Information on how to activate the Rapid Response Team has been discussed. Patient/Family are encouraged to report perceived risks to care and to ask questions if they do not understand what they are told or what they should do.
[2024-03-25 05:55] LABS: Hematocrit 32.5 % (42.0-52.0); Hemoglobin 10.2 g/dL (14.0-18.0); Mean Corpuscular HGB Conc 31.4 g/dl (32-36); Mean Corpuscular Hemoglobin 29.7 pg (26-34); Mean Corpuscular Volume 94.5 fl (80-100); Mean Platelet Volume 9.7 fl (7.4-10.4); Platelet Count Result 192 k/mm3 (150-375); Red Blood Count 3.44 M/mm3 (4.6-6.20); Red Cell Distribution Width 14.9 % (11.5-14.5); White Blood Count 8.2 K/mm3 (4.5-10.0)
[2024-03-25 06:00] VITALS: BP 167/71; PULSE 65; RESP 20; TEMP 36.3; O2SAT 98
[2024-03-25 06:09] LABS: Anion Gap 5 mmol/L (4-12); Blood Urea Nitrogen 10 mg/dL (9-20); Calcium 8.8 mg/dL (8.4-10.2); Carbon Dioxide 30 mmol/L (22-30); Chloride 106 mmol/L (98-107); Estimated CRCL calculation 37 ml/min; Estimated Glomerular Filt Rate > 60; Glucose 83 mg/dL (65-110); Magnesium 2.1 mg/dL (1.6-2.3); Potassium 3.5 mmol/L (3.4-5.0); Sodium 141 mmol/L (137-145)
[2024-03-25 08:50] VITALS: BP 153/78; PULSE 68; RESP 16
[2024-03-25] MEDS: DONEPEZIL HCL 5 MG TABLET PO (08:51)
[2024-03-25] MEDS: CARBIDOPA/LEVODOPA 25/100 MG TABLET 2 TABLET PO ×3 (08:51→17:02)
--- NOTE | 2024-03-25 13:47 | P.PNIM_ITS ---
Progress Note: A&P Assessment and Plan (1) Fall: Qualifiers: Encounter type: initial encounter Qualified Code(s): W19.XXXA - Unspecified fall, initial encounter Code(s): W19.XXXA - Unspecified fall, initial encounter Status: Acute Assessment and Plan: - Possibly related to Parkinson's dementia. - CT head negative for acute. - T-Spine XR negative for acute. - Currently denies pain or other distressful symptoms. - PT/OT eval and treatment. - Case mgt to assist with placement to NH per family request. - Maintain fall precautions. (2) Generalized weakness: Code(s): R53.1 - Weakness Status: Acute Assessment and Plan: - Possibly secondary to deconditioning related to # 1 above. - Mgt as above. - Fall precautions. - PT/OT eval and treatment. - Placement to NH per case co-ordinator. (3) Head injury: Qualifiers: Encounter type: initial encounter Qualified Code(s): S09.90XA - Unspecified injury of head, initial encounter Code(s): S09.90XA - Unspecified injury of head, initial encounter Status: Acute Assessment and Plan: - No open areas or bruising noted on head or face. - CT head negative for acute. - Monitor for acute neuro changes. - Fall precautions. (4) Parkinson disease: Qualifiers: Dyskinesia presence: unspecified whether dyskinesia Fluctuating manifestations: unspecified whether manifestations fluctuate Qualified Code(s): G20.A1 - Parkinson's disease without dyskinesia, without mention of fluctuations Code(s): G20.A1 - Parkinson's disease without dyskinesia, without mention of fluctuations Status: Acute Assessment and Plan: - Continue Sinemet and Donezepil. - Assist with care. - Fall precautions. (5) Dementia: Code(s): F03.90 - Unspecified dementia, unspecified severity, without behavioral disturbance, psychotic disturbance, mood disturbance, and anxiety Status: Acute Assessment and Plan: - Mgt as # 4. - Safety monitorig and assist with care. (6) Hyperlipidemia: Code(s): E78.5 - Hyperlipidemia, unspecified Status: Acute Assessment and Plan: - Statin held for now with weakness. Plan Safety precautions and assist with care as we await placement to NH. Time Spent With Patient Time with patient: 15 - 25 minutes Subjective Date/time seen: 03/25/24 13:47 Patient confused on bedrest but oriented to self and knows he's in the hospital. Pt co-operative and denies any pain or other distressful symptoms. Interval history: Patient calm on bedrest and looks to be in no acute distress. Confused on bedrest but co-operative. Review of Systems Review of Systems: All systems reviewed & are unremarkable except as noted in HPI and below Exam Narrative: HEENT: Atraumatic, PERRL, EOM, non-icteric, moist mucus membranes. NECK: Supple. Lungs: Clear bilaterally. Heart: RRR, no murmurs. Abdomen: Soft, non-tender, non-distended, +ve BS X4 quadrants. Extremities: No edema. +ve pedal pulses. Skin: Warm and dry. No lesions noted. Neuro: Pleasantly confused. Alert and oriented to self and hospital. Neel. hands tremors. No focal neuro deficits noted. Psych: Pleasantly confused but co-operative. Objective Data Vital Signs Vital Signs: Vital Signs - 24 hr 03/24/24 13:50 03/24/24 16:03 03/24/24 20:13 Temperature 97.1 F L Pulse Rate 82 97 91 Respiratory Rate 20 16 18 Blood Pressure 137/95 H 147/81 H 156/107 H Pulse Oximetry 98 97 99 Oxygen Delivery Room Air 03/24/24 20:16 03/24/24 21:01 03/24/24 22:09 Temperature Pulse Rate 85 Respiratory Rate 16 Blood Pressure 188/102 H 164/87 H Pulse Oximetry 93 100 Oxygen Delivery 03/24/24 22:47 03/24/24 23:42 03/25/24 06:00 Temperature 97.6 F 97.3 F L Pulse Rate 64 65 Respiratory Rate 12 20 Blood Pressure 164/87 H 157/77 H 167/71 H Pulse Oximetry 100 98 Oxygen Delivery 03/25/24 08:50 03/25/24 08:30 Temperature Pulse Rate 68 Respiratory Rate 16 Blood Pressure 153/78 H Pulse Oximetry Oxygen Delivery Room Air Intake/Output Intake/Output: Intake & Output 03/22/24 03/23/24 03/24/24 03/25/24 23:59 23:59 23:59 23:59 Intake Total 408 Output Total 200 Balance 208 Meds/Results Medications: Active Medications Generic Name Dose Route Start Last Admin Trade Name Lucie PRN Reason Stop Dose Admin Acetaminophen 650 mg 03/24/24 21:32 Acetaminophen 325 Mg Tablet PO Q4H PRN Mild Pain (1-3) or Fever Carbidopa/Levodopa 2 tablet 03/25/24 09:00 03/25/24 12:49 Carbidopa/Levodopa 25/100 Mg Tablet PO 2 tablet TID ADAN Administration Dextrose 12.5 gm 03/24/24 21:32 Dextrose 50% 25 Gm/50 Ml Syringe IV PUSH PRN PRN Hypoglycemia Protocol Donepezil HCl 5 mg 03/25/24 09:00 03/25/24 08:51 Donepezil Hcl 5 Mg Tablet PO 5 mg DAILY ADAN Administration Glucagon 1 mg 03/24/24 21:32 Glucagon For Inj 1 Mg Vial IM PRN PRN Hypoglycemia Protocol Glucose 15 gm 03/24/24 21:32 Glucose Oral Gel 15 Gm Of Glucse In 37.5 Gm Tube PO PRN PRN Hypoglycemia Protocol Dextrose 1,000 mls @ 100 mls/hr 03/24/24 21:32 Dextrose 5% 1,000 Ml IVPB PRN PRN Hypoglycemia Protocol Radiology Results: ITS Impressions Head CT 03/24/24 16:27 IMPRESSION: 1. Stable moderate nonspecific cerebral white matter disease, which likely represents chronic small vessel ischemic disease. Thoracic Spine X-Ray 03/24/24 17:47 IMPRESSION: No acute compression fracture with diffuse bony demineralization. Labs Labs: Laboratory Results - last 24 hr 03/24/24 03/24/24 03/25/24 20:10 20:33 05:23 WBC 9.9 8.2 RBC 3.51 L 3.44 L Hgb 10.5 L 10.2 L Hct 32.4 L 32.5 L MCV 92.3 94.5 MCH 29.9 29.7 MCHC 32.4 31.4 L RDW 14.9 H 14.9 H Plt Count 189 192 MPV 9.6 9.7 Immature Gran % (Auto) 0.3 Neut % (Auto) 68.9 Lymph % (Auto) 21.4 [place] % (Auto) 8.3 Eos % (Auto) 0.5 Baso % (Auto) 0.6 Lymph # (Auto) 2.11 [place] # (Auto) 0.8 H Eos # (Auto) 0.1 Baso # (Auto) 0.1 Abs Immat Gran (auto) 0.03 Absolute Neuts (auto) 6.8 H Absolute Nucleated RBC 0.000 Nucleated RBC % 0.0 Sodium 138 141 Potassium 2.9 L 3.5 Chloride 104 106 Carbon Dioxide 29 30 Anion Gap 5 5 BUN 11 10 Creatinine 0.80 0.90 Estim Creat Clear Calc 43 37 Estimated GFR > 60 > 60 Glucose 86 83 Calcium 8.6 8.8 Magnesium 2.0 2.1 Total Bilirubin 0.5 AST 37 ALT 7 Alkaline Phosphatase 87 Total Protein 7.0 Albumin 3.3 L Urine Color Yellow Urine Appearance Clear Urine pH 7.0 Ur Specific [place] 1.013 Urine Protein Trace Urine Glucose (UA) Negative Urine Ketones Negative Ur Blood (Man) Negative Urine Nitrate Negative Urine Bilirubin Negative Urine Urobilinogen 0.2 Add Ur Microanalysis Reviewed Leukocyte Esterase Rfl Negative Urine RBC 0-2 Urine WBC 6-10 H Ur Squamous Epith Cells None seen Urine Bacteria None seen Urine Casts 6-10 Hyaline Casts Present Influenza A (RT-PCR) Negative Influenza B (RT-PCR) Negative RSV (RT-PCR) Negative SARS-CoV-2 RNA (RT-PCR) Negative Quality VTE Prophylaxis VTE prophylaxis: mechanical ordered Hospitalist [facility] Advance Care Plan I have confirmed that the patient's Advanced Care Plan is present, code status is documented, or surrogate decision maker is listed in patient medical record.: Yes Medication Reconciliation I have utilized all available resources to obtain, update and review the patients current medications (includes all prescriptions, OTC, herbals, cannabis, and nutritional supplements).: Yes
[2024-03-25 14:00] VITALS: BP 155/75; PULSE 86; RESP 20; TEMP 36.8; O2SAT 96
[2024-03-25 19:53] VITALS: BP 136/69; PULSE 72; RESP 16; TEMP 36.5; O2SAT 96
[2024-03-25 22:31] VITALS: BP 159/83; PULSE 89; RESP 16; TEMP 37.2; O2SAT 96
[2024-03-26 00:41] VITALS: BP 159/83; PULSE 89; RESP 16; TEMP 37.2; O2SAT 96
[2024-03-26 06:00] VITALS: PULSE 87; RESP 20; TEMP 36.7; O2SAT 96
[2024-03-26] MEDS: DONEPEZIL HCL 5 MG TABLET PO (10:02)
[2024-03-26] MEDS: CARBIDOPA/LEVODOPA 25/100 MG TABLET 2 TABLET PO ×3 (10:02→16:55)
--- NOTE | 2024-03-26 10:46 | PM.IMPN ---
Progress Note: A&P Assessment and Plan (1) Fall: Qualifiers: Encounter type: initial encounter Qualified Code(s): W19.XXXA - Unspecified fall, initial encounter Code(s): W19.XXXA - Unspecified fall, initial encounter Status: Acute Assessment and Plan: - Possibly related to Parkinson's dementia. - CT head negative for acute. - T-Spine XR negative for acute. - Currently denies pain or other distressful symptoms. - Continue PT/OT treatment. - Case mgt to assist with placement to NH per family request. - Maintain fall precautions. (2) Generalized weakness: Code(s): R53.1 - Weakness Status: Acute Assessment and Plan: - Possibly secondary to deconditioning related to # 1 above. - Mgt as above. - Fall precautions. - PT/OT eval and treatment. - Placement to NH per case co-cordinator. (3) Head injury: Qualifiers: Encounter type: initial encounter Qualified Code(s): S09.90XA - Unspecified injury of head, initial encounter Code(s): S09.90XA - Unspecified injury of head, initial encounter Status: Acute Assessment and Plan: - No open areas or bruising noted on head or face. - CT head negative for acute. - Monitor for acute neuro changes. - Fall precautions. (4) Parkinson disease: Qualifiers: Dyskinesia presence: unspecified whether dyskinesia Fluctuating manifestations: unspecified whether manifestations fluctuate Qualified Code(s): G20.A1 - Parkinson's disease without dyskinesia, without mention of fluctuations Code(s): G20.A1 - Parkinson's disease without dyskinesia, without mention of fluctuations Status: Acute Assessment and Plan: - Continue Sinemet and Donezepil. - Assist with care. - Fall precautions. (5) Dementia: Code(s): F03.90 - Unspecified dementia, unspecified severity, without behavioral disturbance, psychotic disturbance, mood disturbance, and anxiety Status: Acute Assessment and Plan: - Mgt as # 4. - Safety monitorig and assist with care. (6) Hyperlipidemia: Code(s): E78.5 - Hyperlipidemia, unspecified Status: Acute Assessment and Plan: - Statin held for now with weakness. Plan Safety precautions and assist with care as we await placement to NH. Time Spent With Patient Time with patient: 15 - 25 minutes Subjective Date/time seen: 03/26/24 10:46 Patient calm on bedrest and states he feels alright. Denies any pain or other distressful symptoms. Interval history: Patient calm on bedrest and looks to be in no acute distress. Sleeping but easily awakens to verbal commands. Pleasantly confused but co-operative, only oriented to self. Review of Systems Review of Systems: 12 systems were reviewed and are negative except for as per HPI. All systems reviewed & are unremarkable except as noted in HPI and below Exam Narrative: HEENT: Atraumatic, PERRL, EOM, non-icteric, moist mucus membranes. NECK: Supple. Lungs: Clear bilaterally. Heart: RRR, no murmurs. Abdomen: Soft, non-tender, non-distended, +ve BS X4 quadrants. Extremities: No edema. +ve pedal pulses. Skin: Warm and dry. No lesions noted. Neuro: Pleasantly confused. Alert and oriented to self only. Neel. hands tremors when awake. No focal neuro deficits noted. Psych: Pleasantly confused but co-operative. Objective Data Vital Signs Vital Signs: Vital Signs - 24 hr 03/25/24 14:00 03/25/24 19:53 03/25/24 22:31 Temperature 98.2 F 97.7 F 99.0 F Pulse Rate 86 72 89 Respiratory Rate 20 16 16 Blood Pressure 155/75 H 136/69 159/83 H Pulse Oximetry 96 96 96 03/26/24 00:41 03/26/24 06:00 Temperature 99.0 F 98.1 F Pulse Rate 89 87 Respiratory Rate 16 20 Blood Pressure 159/83 H Pulse Oximetry 96 96 Intake/Output Intake/Output: Intake & Output 03/23/24 03/24/24 03/25/24 03/26/24 23:59 23:59 23:59 23:59 Intake Total 1498 Output Total 650 Balance 848 Meds/Results Medications: Active Medications Generic Name Dose Route Start Last Admin Trade Name Freq PRN Reason Stop Dose Admin Acetaminophen 650 mg 03/24/24 21:32 Acetaminophen 325 Mg Tablet PO Q4H PRN Mild Pain (1-3) or Fever Carbidopa/Levodopa 2 tablet 03/25/24 09:00 03/26/24 10:02 Carbidopa/Levodopa 25/100 Mg Tablet PO 2 tablet TID ADAN Administration Dextrose 12.5 gm 03/24/24 21:32 Dextrose 50% 25 Gm/50 Ml Syringe IV PUSH PRN PRN Hypoglycemia Protocol Donepezil HCl 5 mg 03/25/24 09:00 03/26/24 10:02 Donepezil Hcl 5 Mg Tablet PO 5 mg DAILY ADAN Administration Glucagon 1 mg 03/24/24 21:32 Glucagon For Inj 1 Mg Vial IM PRN PRN Hypoglycemia Protocol Glucose 15 gm 03/24/24 21:32 Glucose Oral Gel 15 Gm Of Glucse In 37.5 Gm Tube PO PRN PRN Hypoglycemia Protocol Dextrose 1,000 mls @ 100 mls/hr 03/24/24 21:32 Dextrose 5% 1,000 Ml IVPB PRN PRN Hypoglycemia Protocol Radiology Results: ITS Impressions Head CT 03/24/24 16:27 IMPRESSION: 1. Stable moderate nonspecific cerebral white matter disease, which likely represents chronic small vessel ischemic disease. Thoracic Spine X-Ray 03/24/24 17:47 IMPRESSION: No acute compression fracture with diffuse bony demineralization. Quality VTE Prophylaxis VTE prophylaxis: mechanical ordered Hospitalist [facility] Advance Care Plan I have confirmed that the patient's Advanced Care Plan is present, code status is documented, or surrogate decision maker is listed in patient medical record.: Yes Medication Reconciliation I have utilized all available resources to obtain, update and review the patients current medications (includes all prescriptions, OTC, herbals, cannabis, and nutritional supplements).: Yes
[2024-03-26 13:58] VITALS: BP 107/54; PULSE 61; RESP 12; TEMP 36.3; O2SAT 100
[2024-03-26 21:24] VITALS: BP 144/93; PULSE 68; RESP 14; TEMP 35.9; O2SAT 98
[2024-03-27 06:00] VITALS: BP 161/75; PULSE 68; RESP 14; TEMP 36.2; O2SAT 98
[2024-03-27 08:54] VITALS: RESP 14; O2SAT 98
[2024-03-27] MEDS: CARBIDOPA/LEVODOPA 25/100 MG TABLET 2 TABLET PO ×3 (08:54→16:20)
[2024-03-27] MEDS: DONEPEZIL HCL 5 MG TABLET PO (08:54)
--- NOTE | 2024-03-27 12:45 | P.PNIM_ITS ---
Progress Note: A&P Assessment and Plan (1) Fall: Qualifiers: Encounter type: initial encounter Qualified Code(s): W19.XXXA - Unspecified fall, initial encounter Code(s): W19.XXXA - Unspecified fall, initial encounter Status: Acute Assessment and Plan: - Possibly related to Parkinson's dementia. - CT head negative for acute. - T-Spine XR negative for acute. - Currently denies pain or other distressful symptoms. - Continue PT/OT treatment. - Case mgt to assist with placement to NH per family request. - Continue fall precautions. (2) Generalized weakness: Code(s): R53.1 - Weakness Status: Acute Assessment and Plan: - Possibly secondary to deconditioning +/vs # 1 above. - Mgt as above. - Fall precautions. - PT/OT eval and treatment. - Placement to NH per case co-cordinator. (3) Head injury: Qualifiers: Encounter type: initial encounter Qualified Code(s): S09.90XA - Unspecified injury of head, initial encounter Code(s): S09.90XA - Unspecified injury of head, initial encounter Status: Acute Assessment and Plan: - No open areas or bruising noted on head or face. - CT head negative for acute. - Monitor for acute neuro changes. - Fall precautions. (4) Parkinson disease: Qualifiers: Dyskinesia presence: unspecified whether dyskinesia Fluctuating manifestations: unspecified whether manifestations fluctuate Qualified Code(s): G20.A1 - Parkinson's disease without dyskinesia, without mention of fluctuations Code(s): G20.A1 - Parkinson's disease without dyskinesia, without mention of fluctuations Status: Acute Assessment and Plan: - Continue Sinemet and Donezepil. - Assist with care. - Fall precautions. (5) Dementia: Code(s): F03.90 - Unspecified dementia, unspecified severity, without behavioral disturbance, psychotic disturbance, mood disturbance, and anxiety Status: Acute Assessment and Plan: - Mgt as # 4. - Safety monitorig and assist with care. (6) Hyperlipidemia: Code(s): E78.5 - Hyperlipidemia, unspecified Status: Acute Assessment and Plan: - Resume statin. Plan Safety precautions and assist with care as we await placement to NH. Time Spent With Patient Time with patient: 15 - 25 minutes Subjective Date/time seen: 03/27/24 12:45 Patient calm on bedrest eating lunch. Denies pain or other distressful symptoms. Interval history: Patient calm on bedrest and looks to be in no acute distress. Review of Systems Review of Systems: 12 systems were reviewed and are negative except for as per HPI. All systems reviewed & are unremarkable except as noted in HPI and below Exam Narrative: HEENT: Atraumatic, PERRL, EOM, non-icteric, moist mucus membranes. NECK: Supple. Lungs: Clear bilaterally. Heart: RRR, no murmurs. Abdomen: Soft, non-tender, non-distended, +ve BS X4 quadrants. Extremities: No edema. +ve pedal pulses. Skin: Warm and dry. No lesions noted. Neuro: Pleasantly confused. Alert and oriented to self only. some thais. hands tr emors. No focal neuro deficits noted. Psych: Pleasantly confused but co-operative. Objective Data Vital Signs Vital Signs: Vital Signs - 24 hr 03/26/24 13:58 03/26/24 21:24 03/27/24 06:00 Temperature 97.3 F L 96.6 F L 97.1 F L Pulse Rate 61 68 68 Respiratory Rate 12 14 14 Blood Pressure 107/54 L 144/93 H 161/75 H Pulse Oximetry 100 98 98 Oxygen Delivery 03/27/24 08:54 Temperature Pulse Rate Respiratory Rate 14 Blood Pressure Pulse Oximetry 98 Oxygen Delivery Room Air Intake/Output Intake/Output: Intake & Output 03/24/24 03/25/24 03/26/24 03/27/24 23:59 23:59 23:59 23:59 Intake Total 1498 1020 480 Output Total 650 700 Balance 848 320 480 Meds/Results Medications: Active Medications Generic Name Dose Route Start Last Admin Trade Name Freq PRN Reason Stop Dose Admin Acetaminophen 650 mg 03/24/24 21:32 Acetaminophen 325 Mg Tablet PO Q4H PRN Mild Pain (1-3) or Fever Carbidopa/Levodopa 2 tablet 03/25/24 09:00 03/27/24 08:54 Carbidopa/Levodopa 25/100 Mg Tablet PO 2 tablet TID ADAN Administration Dextrose 12.5 gm 03/24/24 21:32 Dextrose 50% 25 Gm/50 Ml Syringe IV PUSH PRN PRN Hypoglycemia Protocol Donepezil HCl 5 mg 03/25/24 09:00 03/27/24 08:54 Donepezil Hcl 5 Mg Tablet PO 5 mg DAILY ADAN Administration Glucagon 1 mg 03/24/24 21:32 Glucagon For Inj 1 Mg Vial IM PRN PRN Hypoglycemia Protocol Glucose 15 gm 03/24/24 21:32 Glucose Oral Gel 15 Gm Of Glucse In 37.5 Gm Tube PO PRN PRN Hypoglycemia Protocol Dextrose 1,000 mls @ 100 mls/hr 03/24/24 21:32 Dextrose 5% 1,000 Ml IVPB PRN PRN Hypoglycemia Protocol Radiology Results: ITS Impressions Head CT 03/24/24 16:27 IMPRESSION: 1. Stable moderate nonspecific cerebral white matter disease, which likely represents chronic small vessel ischemic disease. Thoracic Spine X-Ray 03/24/24 17:47 IMPRESSION: No acute compression fracture with diffuse bony demineralization. Quality VTE Prophylaxis VTE prophylaxis: mechanical ordered Hospitalist [facility] Advance Care Plan I have confirmed that the patient's Advanced Care Plan is present, code status is documented, or surrogate decision maker is listed in patient medical record.: Yes Medication Reconciliation I have utilized all available resources to obtain, update and review the patients current medications (includes all prescriptions, OTC, herbals, cannabis, and nutritional supplements).: Yes
[2024-03-27 13:45] VITALS: BMI 23.2
[2024-03-27 14:00] VITALS: BP 174/80; PULSE 73; RESP 12; TEMP 36.4; O2SAT 99
[2024-03-27 21:13] VITALS: BP 163/74; PULSE 86; RESP 14; TEMP 36.9; O2SAT 98
[2024-03-28 06:00] VITALS: BP 164/92; PULSE 66; RESP 16; TEMP 36.9; O2SAT 98
[2024-03-28] MEDS: DONEPEZIL HCL 5 MG TABLET PO (09:26)
[2024-03-28] MEDS: CARBIDOPA/LEVODOPA 25/100 MG TABLET 2 TABLET PO ×3 (09:26→17:25)
--- NOTE | 2024-03-28 11:36 | P.PNIM_ITS ---
Progress Note: A&P Assessment and Plan (1) Fall: Qualifiers: Encounter type: initial encounter Qualified Code(s): W19.XXXA - Unspecified fall, initial encounter Code(s): W19.XXXA - Unspecified fall, initial encounter Status: Acute Assessment and Plan: - Possibly related to Parkinson's dementia. - CT head negative for acute. - T-Spine XR negative for acute. - Currently denies pain or other distressful symptoms. - Continue PT/OT treatment. - Case mgt to assist with placement to NH per family request. - Continue fall precautions. (2) Generalized weakness: Code(s): R53.1 - Weakness Status: Acute Assessment and Plan: - Possibly secondary to deconditioning +/vs # 1 above. - Mgt as above. - Fall precautions. - PT/OT eval and treatment. - Placement to NH per case co-cordinator. (3) Head injury: Qualifiers: Encounter type: initial encounter Qualified Code(s): S09.90XA - Unspecified injury of head, initial encounter Code(s): S09.90XA - Unspecified injury of head, initial encounter Status: Acute Assessment and Plan: - No open areas or bruising noted on head or face. - CT head negative for acute. - Monitor for acute neuro changes. - Fall precautions. (4) Parkinson disease: Qualifiers: Dyskinesia presence: unspecified whether dyskinesia Fluctuating manifestations: unspecified whether manifestations fluctuate Qualified Code(s): G20.A1 - Parkinson's disease without dyskinesia, without mention of fluctuations Code(s): G20.A1 - Parkinson's disease without dyskinesia, without mention of fluctuations Status: Acute Assessment and Plan: - Continue Sinemet and Donezepil. - Assist with care. - Fall precautions. (5) Dementia: Code(s): F03.90 - Unspecified dementia, unspecified severity, without behavioral disturbance, psychotic disturbance, mood disturbance, and anxiety Status: Acute Assessment and Plan: - Mgt as # 4. - Safety monitorig and assist with care. (6) Hyperlipidemia: Code(s): E78.5 - Hyperlipidemia, unspecified Status: Acute Assessment and Plan: - Resume statin. Plan Safety precautions and assist with care as we await placement to NH. Time Spent With Patient Time with patient: 15 - 25 minutes Subjective Date/time seen: 03/28/24 11:36 Patient oriented to self and states he feels alright. Denies pain or other distressful symptoms. States had a good breakfast. Interval history: Patient seated on recliner. Pleasantly confused but looks to be in no acute distress. Review of Systems Review of Systems: 12 systems were reviewed and are negative except for as per HPI. All systems reviewed & are unremarkable except as noted in HPI and below Exam Narrative: General: Pleasantly confused but co-operative and in no acute distress. HEENT: Atraumatic, PERRL, EOM, non-icteric, moist mucus membranes. NECK: Supple. Lungs: Clear bilaterally. Heart: RRR, no murmurs. Abdomen: Soft, non-tender, non-distended, +ve BS X4 quadrants. Extremities: No edema. +ve pedal pulses. Skin: Warm and dry. No lesions noted. Neuro: Pleasantly confused. Alert and oriented to self. some thais. hands tremors. No focal neuro deficits noted. Psych: Pleasantly confused but co-operative. Objective Data Vital Signs Vital Signs: Vital Signs - 24 hr 03/27/24 14:00 03/27/24 20:00 03/27/24 21:13 Temperature 97.5 F L 98.5 F Pulse Rate 73 86 Respiratory Rate 12 14 Blood Pressure 174/80 H 163/74 H Pulse Oximetry 99 98 Oxygen Delivery Room Air 03/28/24 06:00 03/28/24 09:30 Temperature 98.4 F Pulse Rate 66 Respiratory Rate 16 Blood Pressure 164/92 H Pulse Oximetry 98 Oxygen Delivery Room Air Intake/Output Intake/Output: Intake & Output 03/25/24 03/26/24 03/27/24 03/28/24 23:59 23:59 23:59 23:59 Intake Total 1498 1020 1920 480 Output Total 650 700 Balance 097 961 9672 480 Meds/Results Medications: Active Medications Generic Name Dose Route Start Last Admin Trade Name Freq PRN Reason Stop Dose Admin Acetaminophen 650 mg 03/24/24 21:32 Acetaminophen 325 Mg Tablet PO Q4H PRN Mild Pain (1-3) or Fever Carbidopa/Levodopa 2 tablet 03/25/24 09:00 03/28/24 09:26 Carbidopa/Levodopa 25/100 Mg Tablet PO 2 tablet TID ADAN Administration Dextrose 12.5 gm 03/24/24 21:32 Dextrose 50% 25 Gm/50 Ml Syringe IV PUSH PRN PRN Hypoglycemia Protocol Donepezil HCl 5 mg 03/25/24 09:00 03/28/24 09:26 Donepezil Hcl 5 Mg Tablet PO 5 mg DAILY ADAN Administration Glucagon 1 mg 03/24/24 21:32 Glucagon For Inj 1 Mg Vial IM PRN PRN Hypoglycemia Protocol Glucose 15 gm 03/24/24 21:32 Glucose Oral Gel 15 Gm Of Glucse In 37.5 Gm Tube PO PRN PRN Hypoglycemia Protocol Dextrose 1,000 mls @ 100 mls/hr 03/24/24 21:32 Dextrose 5% 1,000 Ml IVPB PRN PRN Hypoglycemia Protocol Radiology Results: ITS Impressions Head CT 03/24/24 16:27 IMPRESSION: 1. Stable moderate nonspecific cerebral white matter disease, which likely represents chronic small vessel ischemic disease. Thoracic Spine X-Ray 03/24/24 17:47 IMPRESSION: No acute compression fracture with diffuse bony demineralization. Quality VTE Prophylaxis VTE prophylaxis: mechanical ordered Hospitalist [facility] Advance Care Plan I have confirmed that the patient's Advanced Care Plan is present, code status is documented, or surrogate decision maker is listed in patient medical record.: Yes Medication Reconciliation I have utilized all available resources to obtain, update and review the patients current medications (includes all prescriptions, OTC, herbals, cannabis, and nutritional supplements).: Yes
[2024-03-28 13:53] VITALS: BP 121/89; PULSE 99; RESP 20; TEMP 36.5; O2SAT 100
[2024-03-28 21:09] VITALS: BP 148/86; PULSE 76; RESP 16; TEMP 36.7; O2SAT 98
[2024-03-29 06:00] VITALS: BP 166/86; PULSE 62; RESP 14; TEMP 36.7; O2SAT 100
[2024-03-29] MEDS: DONEPEZIL HCL 5 MG TABLET PO (08:59)
[2024-03-29] MEDS: CARBIDOPA/LEVODOPA 25/100 MG TABLET 2 TABLET PO ×2 (08:59→12:58)
--- NOTE | 2024-03-29 13:37 | PM.DS ---
DS: Admitting Diagnosis Discharge Date 03/29/2024 Admitting Diagnosis Fall Episode DS: Discharge Diagnosis Discharge Diagnosis (1) Fall: Qualifiers: Encounter type: initial encounter Qualified Code(s): W19.XXXA - Unspecified fall, initial encounter Code(s): W19.XXXA - Unspecified fall, initial encounter Status: Acute Assessment and Plan: - Possibly related to Parkinson's dementia vs deconditioning vs othe. - CT head negative for acute. - T-Spine XR negative for acute. - Currently denies pain or other distressful symptoms. - Continue PT/OT treatment. - Accepted at SNF and we'll transfer for conditioning. - Continue fall precautions. (2) Generalized weakness: Code(s): R53.1 - Weakness Status: Acute Assessment and Plan: - Possibly secondary to deconditioning +/vs # 1 above. - Mgt as above. - Fall precautions. - PT/OT treatment done inpatient. - Accepted at SNF and will be transferred for further conditioning. (3) Head injury: Qualifiers: Encounter type: initial encounter Qualified Code(s): S09.90XA - Unspecified injury of head, initial encounter Code(s): S09.90XA - Unspecified injury of head, initial encounter Status: Acute Assessment and Plan: - No open areas or bruising noted on head or face. - CT head negative for acute. - Monitor for acute neuro changes. - Fall precautions. - No further work-up currently needed. (4) Parkinson disease: Qualifiers: Dyskinesia presence: unspecified whether dyskinesia Fluctuating manifestations: unspecified whether manifestations fluctuate Qualified Code(s): G20.A1 - Parkinson's disease without dyskinesia, without mention of fluctuations Code(s): G20.A1 - Parkinson's disease without dyskinesia, without mention of fluctuations Status: Acute Assessment and Plan: - Continued on Sinemet and Donezepil inpatient. - Assist with care. - Fall precautions. (5) Dementia: Code(s): F03.90 - Unspecified dementia, unspecified severity, without behavioral disturbance, psychotic disturbance, mood disturbance, and anxiety Status: Acute Assessment and Plan: - Mgt as # 4. - Safety monitorig and assist with care. (6) Hyperlipidemia: Code(s): E78.5 - Hyperlipidemia, unspecified Status: Acute Assessment and Plan: - Statin resumed. Plan Discharge to SNF for continued PT/OT conditioning. DS: Summary Hospital Course Reason for hospitalization: Fall Hospital Course: Patient was brought in to the ER from home after a fall episode. Patient lives with his elderly and son at home. Patient is normally wheelchair bound and ambulates minimally, but apparently he tried to get up and walk and he fell on his head. Imagind done were negative for acute, including CT head and CT thoracic spine. His labs were fairly unremarkable, including negative UA and negative acute respiratory virus panel. Patient has been working with PT and OT inpatient, and has been recommended for SNF placement. Patient has been accepted at [facility] and will be discharged today. Pt pleasantly confused but co-operative and follows commands, only oriented to self. Denies pain or other distressful symptoms, and is medically stable for discharge to SNF. Status at Discharge Functional status at discharge: uses cane/walker Overall status at discharge: patient is progressing back to baseline Time Spent with Patient Time attestation: Total time spent providing and/or coordinating discharge services: Time spent: Less than 30 minutes Exam Narrative: General: Pleasantly confused but co-operative and in no acute distress. HEENT: Atraumatic, PERRL, EOM, non-icteric, moist mucus membranes. NECK: Supple. Lungs: Clear bilaterally. Heart: RRR, no murmurs. Abdomen: Soft, non-tender, non-distended, +ve BS X4 quadrants. Extremities: No edema. +ve pedal pulses. Skin: Warm and dry. No lesions noted. Neuro: Pleasantly confused. Alert and oriented to self. some thais. hands tremors. No focal neuro deficits noted. Psych: Pleasantly confused but co-operative. Discharge Plan Discharge Attending physician on discharge: Joseph Martini Discharging Clinician: Yana Golden Anticipated Discharge Date/Time: 03/29/24 13:59 Patient Disposition: SNF Activity: as tolerated Diet: heart healthy Stand Alone Forms: General Discharge Information Discharge Medications: Continued carbidopa-levodopa 25-100 mg tablet 2 tablet PO TID donepezil 5 mg tablet 5 mg PO DAILY Rx Instructions: TAKE 1 TABLET EVERY DAY simvastatin 40 mg tablet 40 mg PO DAILY Date of admission: 03/24/24 21:33 Primary Care Provider: Dada,Davian Padilla Admitting Provider: Peter Avila Attending physician on admission: Peter Avila Condition: Stable Quality If No VTE Prophylaxis Answer both mechanical and pharmacologic: Reason no mechanical VTE proph: low risk/not indicated Reason no pharmacologic proph: low risk/not indicated Hospitalist MIPS Heart Failure (Exclusion) Patient has history of Heart Transplant or Left Ventricular Assistive Device?: No IF YES, STOP HERE Heart Failure (Qualifier) Patient has current or prior documentation of LVEF less than or equal to 40%, or mod/servere depressed LVSF?: No IF NO, STOP HERE
[2024-03-29 13:59] VITALS: BP 149/76; PULSE 63; RESP 12; TEMP 36.5; O2SAT 100
== END 2024-03-29 15:00 ==
LOC: ANHED 21:32 → ANH2MED 03-27 12:04
PROVIDERS: Physician Assistant; Admitting Provider Internal Medicine; Emergency Provider Physician Assistant; PCP Internal Medicine; Visit Provider Nurse Practitioner Adult Health
DX: S09.90XA Unspecified injury of head, initial encounter (principal); W18.30XA Fall on same level, unspecified, initial encounter; R53.1 Weakness; E87.6 Hypokalemia; M54.9 Dorsalgia, unspecified; G20.A1 Parkinson's disease without dyskinesia, without mention of fluctuations; F02.80 Dementia in other diseases classified elsewhere, unspecified severity, without behavioral disturbance, psychotic disturbance, mood disturbance, and anxiety; Z99.3 Dependence on wheelchair; I10 Essential (primary) hypertension; E78.5 Hyperlipidemia, unspecified; C61 Malignant neoplasm of prostate; M41.9 Scoliosis, unspecified; Z20.822 Contact with and (suspected) exposure to COVID-19; Z75.1 Person awaiting admission to adequate facility elsewhere; Z66 Do not resuscitate; Z79.899 Other long term (current) drug therapy
CPT/HCPCS: 36415; 70450; 72072; 80048; 80053; 81001; 83735; 85025; 85027; 87086; 87637; 96374; 96375; 97110; 97161; 97165; 97530; 97535; 99285; A9270; G0378; J1200; J2060; J3480